=== PATIENT | male | born 1950 | race Caucasian/White ===

== ENCOUNTER 2022-06-07 08:27 | Outpatient (CLI) | payer MEDICARE, SELFPAY | END 2022-06-07 08:28 | disposition home or self-care (01) | LOC: NFLDREF 06-08 06:36 | PROVIDERS: PCP Internal Medicine; Referring Provider Internal Medicine; Visit Provider Internal Medicine | DX: Z00.00 Encounter for general adult medical examination without abnormal findings (principal); F10.11 Alcohol abuse, in remission; Z13.6 Encounter for screening for cardiovascular disorders; Z13.1 Encounter for screening for diabetes mellitus | CPT/HCPCS: 80053; 80061 ==

== ENCOUNTER 2023-06-17 15:04 | Outpatient (CLI) | payer MEDICARE, SELFPAY ==
--- OUTSIDE RECORDS SUMMARY | 2023-06-17 15:07 | XMS_ITS | Encounter Summary ---
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, left, moderate stage History of amblyopia Epiretinal membrane (ERM) of both eyes Glaucoma suspect, right Procedures Case Request OR - Ophthalmology Surgery: CATARACT EXTRACTION WITH INTRAOCULAR LENS IMPLANT Cooper Coelho MD [address] [place] [address] Referral ID Status Reason Start Date Expiration Date V isits Requested Visits Authorized [id number] Incomplete 05/16/2023 08/14/2024 1 1 * Procedure/Equipment (Routine) - Incomplete Specialty Diagnoses / Procedures Referred By Sharee cota Referred To Contact Diagnoses 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, left, moderate stage History of amblyopia Epiretinal membrane (ERM) of both eyes Glaucoma suspect, right Procedures Case Request OR - Ophthalmology Surgery: CATARACT EXTRACTION WITH INTRAOCULAR LENS IMPLANT with ab interno canaloplasty and possible goniotomy Cooper Coelho MD [address] [place] [address] Referral ID Status Reason Start Date Expiration Date V isits Requested Visits Authorized [id number] Incomplete 05/16/2023 08/14/2024 1 1 Reason for Visit * Reason Comments CONSULT CATARACTS GLAUCOMA Encounter Details Date Type Department Care Team (Late st Contact Info) Description 05/16/2023 1:00 PM CDT Office Visit [facility] Ophthalmology [address] [facility] [place] [address] Cooper Coelho MD [address] [place] [address] Combined forms of age-related cataract of both eyes (Primary Dx); Capsular glaucoma with lens pseudoexfoliation, left, moderate stage; History of amblyopia; Epiretinal membrane (ERM) of both eyes; Glaucoma suspect, right Social History Tobacco Use Types Packs/Day Years Used Date Smoking Tobacco: Never Assessed Sex and Gender Information Value Date Recorded Sex Assigned at Not on file Gender Identity Not on file Sexual Orientation Not on file documented as of this encounter Progress Notes * Cooper Coelho MD - 05/16/2023 1:00 PM CDT I reviewed the information stated in the lead pharmacy technician's note for today and agree, unless otherwise noted below. I reviewed the patient's past medical history, medications, family history, and social history. General: Generally healthy appearing. Alert and oriented x 3. Subjective: see tech note, agree. Impression: Encounter Diagnoses Name Primary? Combined forms of age-related cataract of both eyes Yes R eye: minimal concern for glaucoma L eye: IOP is 29 on cosopt, moderate cupping with suprior thinning, also with OCT thin superior andinferior mild/moderate VF defect Angles are 1-2 post dilation both L eye with 1+ TMP, R eye with trace light TMP Also with maculopathy Plan: 1. Schedule cataract extraction and IOL implantation (CEIOL) both eyes, left eye first 2. Omni canaloplasty goniotomy L eye only 3. Anesthesia: topical Refractive Goal: plano Standard vs other: standard Prior refractive surgery: no Dilation: 5-6 mm Flomax?: No Malyugin Ring?: possible Trypan?: No We reviewed the indications, risks, benefits, and alternatives of cataract surgery. Risks discussedincluded, but were not limited to: small risk of severe vision loss or blindness, small risk of 2ndoperation needed for any complication, risk of postoperative inflammation of the retina or the cornea, irregularity of the pupil, risks of positive and negatives dysphotopsias. The cataract surgery consent form will be read and signed by the patient. The different IOL options are presented to the patient using the IOL information and consent form, including Standard, Toric, and Multifocal lens options, and Distance, Near, or Monovision refractivegoals. The patient will select the best IOL option and refractive goal based on their stated visionneeds and goals. The patient understands that the desired refractive outcome is not guaranteed, and some postoperative optical correction with spectacles or contact lenses to refine vision for distance, near, or both may be necessary. With any procedure there is a small but inherent risk of acquiring infection including, but not limited to, the novel coronavirus (COVID-19). Please be aware that there is a potential for your procedure or surgery to be postponed, or possibly canceled, if you should test positive for COVID-19. There is also a potential for postponement of your procedure if there is a significant reduction in resources required to safely perform your procedure. Cooper Coelho MD documented in this encounter Plan of Treatment Upcoming Encounters Date Type Department Care Team (Latest Contact Info) Description 06/20/2023 2:30 PM CDT Appointment [address] [address] [place] [address] [place] [address] [place] [address] 06/26/2023 12:25 PM CDT Hospital Encounter [facility] [address] [facility] Ambul Surgery [address] [facility] [place] [address] Cooper Coelho MD [address] [place] [address] 06/26/2023 12:25 PM CDT - 06/26/2023 1:00 PM CDT Surgery [facility] [address] Ambul Surgery [address] [facility] [place] [address] Cooper Coelho MD [address] [place] [address] CATARACT EXTRACTION WITH INTRAOCULAR LENS IMPLANT with ab interno canaloplasty and possible goniotomy 06/27/2023 8:30 AM CDT Appointment [place] [address] [place] [address]. [place] [address] Cooper Coelho MD [address] [place] [address] 07/10/2023 9:35 AM CDT Hospital Encounter [facility] [address] Ambul Surgery [address] [facility] [place] [address] Cooper Coelho MD [address] [place] [address] 07/10/2023 9:35 AM CDT - 07/10/2023 10:10 AM CDT Surgery [facility] [address] Ambul Surgery [address] [place] [address]. [place] [address] Cooper Coelho MD [address] [place] [address] CATARACT EXTRACTION WITH INTRAOCULAR LENS IMPLANT 07/11/2023 8:50 AM CDT Appointment [place] [address] [place] [address]. 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, left, moderate stage History of amblyopia Epiretinal membrane (ERM) of both eyes Glaucoma suspect, right 06/26/2023 12:25 PM CDT PHACOEMULSIFICATION WITH IMPLANT INTRAOCULAR LENS Same Day Surgery 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, left, moderate stage History of amblyopia Epiretinal membrane (ERM) of both eyes Glaucoma suspect, right 07/10/2023 9:35 AM CDT documented as of this encounter Visit Diagnoses Diagnosis Combined forms of age-related cataract of both eyes- Primary Other and combined forms of senile cataract Capsular glaucoma with lens pseudoexfoliation, left, moderate stage History of amblyopia Personal history of other disorders of nervous system and sense organs Epiretinal membrane (ERM) of both eyes Glaucoma suspect, right Combined forms of age-related cataract of both eyes Other and combined forms of senile cataract Capsular glaucoma with lens pseudoexfoliation, left, moderate stage History of amblyopia Personal history of other disorders of nervous system and sense organs Epiretinal membrane (ERM) of both eyes Glaucoma suspect, right Combined forms of age-related cataract of both eyes Other and combined forms of senile cataract Capsular glaucoma with lens pseudoexfoliation, left, moderate stage History of amblyopia Personal history of other disorders of nervous system and sense organs Epiretinal membrane (ERM) of both eyes Glaucoma suspect, right Combined forms of age-related cataract of both eyes Other and combined forms of senile cataract Capsular glaucoma with lens pseudoexfoliation, left, moderate stage History of amblyopia Personal history of other disorders of nervous system and sense organs Epiretinal membrane (ERM) of both eyes Glaucoma suspect, right documented in this encounter Care Teams Home Economist Relationship Specialty Start Date End Date Needs Pcp, [place] [address] PCP - General 12/02/22 documented as of this encounter
--- OUTSIDE RECORDS SUMMARY | 2023-06-17 15:07 | XMS_ITS | Encounter Summary ---
Author Name Unknown Organization [facility] Address [address] [place] [address] Care Team Providers Care Pharmacy Innovation Assistant Name Role Phone Needs Pcp, Assignment Primary Care Provider [phone] Encounter Details Date Type Department Care Team (Latest Contact Info) Description 04/03/2023 Orders Only HIM DEPARTMENT Provider, [place] [address] Social History Tobacco Use Types Packs/Day Years Used Date Smoking Tobacco: Never Assessed Sex and Gender Information Value Date Recorded Sex Assigned at Not on file Gender Identity Not on file Sexual Orientation Not on file documented as of this encounter Plan of Treatment Upcoming Encounters Date Type Department Care Team (Latest Contact Info) Description 06/20/2023 2:30 PM CDT Appointment [place] [address] Family Medicine [address] [place] [address] [place] [address] [place] [address] 06/26/2023 12:25 PM CDT Hospital Encounter [facility] [address] Ambul Surgery [address] [facility] [place], [place] [address] Cooper Coelho MD [address] [place] [address] 06/26/2023 12:25 PM CDT - 06/26/2023 1:00 PM CDT Surgery [facility] [address] Ambul Surgery [address] [place] [address]. [place] [address] Cooper Coelho MD [address] [place] [address] CATARACT EXTRACTION WITH INTRAOCULAR LENS IMPLANT with ab interno canaloplasty and possible goniotomy 06/27/2023 8:30 AM CDT Appointment [place] [address] [place] [address]. [place] [address] Cooper Coelho MD [address] [place] [address] 07/10/2023 9:35 AM CDT Hospital Encounter [facility] [address] Ambul Surgery [address] [place] [address]. [place] [address] Cooper Coelho MD [address] [place] [address] 07/10/2023 9:35 AM CDT - 07/10/2023 10:10 AM CDT Surgery [place] [address] [address] Ambul Surgery [address] [place] [address] Cooper Coelho MD [address] [place] [address] CATARACT EXTRACTION WITH INTRAOCULAR LENS IMPLANT 07/11/2023 8:50 AM CDT Appointment [place] [address] [place] [address]. [place] [address] Cooper Coelho MD [address] [place] [address] 07/31/2023 10:30 AM CDT Appointment [facility] [address] [phone] Claudette Sánchez, OD [address] [place], [place] [id number] Scheduled Procedures Name Priority Associated Diagnoses Date/Ti [...] AM CDT documented as of this encounter Procedures Procedure Name Priority Date/Time Associated Diagnosis Comments EYE PENTACAM 04/03/2023 documented in this encounter Results * EYE PENTACAM (04/03/2023) Interface Provider MD DUMMY/OTHER/AR documented in this encounter Visit Diagnoses Not on filedocumented in this encounter Care Teams Pharmacy Innovation Assistant Relationship Specialty Start Date End Date Needs Pcp, [place] [address] PCP - General 12/02/22 documented as of this encounter
--- OUTSIDE RECORDS SUMMARY | 2023-06-17 15:07 | XMS_ITS | Encounter Summary ---
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 Results of the tests will be sent to Dr. Rios who will report the results to the patient. HVF and OCT available for review in FORUM. Next appt: 04/10/23 Contact message okay - yes Current Eyedrops - Combigan BID LE last night @ 10p and this morning at 8:30 am Fixation: Yelena lennon Comments: Applanation @ 11:26 RE 18 LE 26 ET INSPECTOR documented in this encounter Plan of Treatment Upcoming Encounters Date Type Department Care Team (Latest Contact Info) Description 06/20/2023 2:30 PM CDT Appointment [address] [place] [address] [place] [address] [place] [address] 06/26/2023 12:25 PM CDT Hospital Encounter [facility] [address] Ambul Surgery [address] [place] [address]. [place] [address] Cooper Coelho MD [address] [place] [address] 06/26/2023 12:25 PM CDT - 06/26/2023 1:00 PM CDT Surgery [place] [address] Ambul Surgery [address] [place] [address]. [place] [address] [place] [address] [place] [address] CATARACT EXTRACTION WITH INTRAOCULAR LENS IMPLANT with ab interno canaloplasty and possible goniotomy 06/27/2023 8:30 AM CDT Appointment [place] [address] [place] [address]. [place] [address] Cooper Coelho MD [address] [place] [address] 07/10/2023 9:35 AM CDT Hospital Encounter [facility] [address] Ambul Surgery [address] [place] [address]. [place] [address] Cooper Coelho MD [address] [place] [address] 07/10/2023 9:35 AM CDT - 07/10/2023 10:10 AM CDT Surgery [place] [address] Ambul Surgery [address] [facility] [place] [address] Cooper Coelho MD [address] [place] [address] CATARACT EXTRACTION WITH INTRAOCULAR LENS IMPLANT 07/11/2023 8:50 AM CDT Appointment [place] [address] Ophthalmology [address] [facility] [place] [address] Cooper Coelho MD [address] [place] [address] 07/31/2023 10:[address] 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
--- OUTSIDE RECORDS SUMMARY | 2023-06-17 15:07 | XMS_ITS | Encounter Summary ---
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 We need to address thisbefore we talk about cataract surgery. High eye pressure could mean that you have glaucoma, so we're going to do the visual field test to check for that tomorrow at 11am. Start the cosopt (blue top) 2 times per day in the LEFT eye. We will check your eye pressure again tomorrow and determine follow up. D DEVELOPMENT PROFESSOR documented in this encounter Progress Notes * Stacie Rios MD - 04/03/2023 1:00 PM CST [facility] Chief Complaint: CONSULT and CATARACTS Subjective: [facility] Ambrose is here for a cataract consult. Referred by Dr. Key, 01/09/23 No retinal contraindications to surgery Ambrose Camp presents for evaluation of decreased vision affecting ability to do daily activities, specifically trouble driving and reading. Context of the chief complaint/aggravating factors: He reports that he has glare around headlights when driving at night. More so in the LE for the past few years. Severity: mod Location: BE Duration: 2 years Course (getting better or worse): worse Associated symptoms: He reports that his bifocal glasses broke a few weeks ago. Right now he is using OTC readers only. 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 No History of previous refractive surgery: No Contact lens wear: No Use of flomax/tamsulosin? No Able to lie flat for 30 minutes? Yes Significant claustrophobia? No Allergic to floxin type antibiotics? No Right/Left handed: right Eye dominance: right Preferred pharmacy: [facility] in [place] on [address] Ambrose is in no acute distress. A&O x 3. Last edited by Yesy Sparks on 04/03/2023 1:39 PM. Review of Systems 10 systems reviewed, all negative except for what is documented in [facility]. General medical evaluation: Ambrose is in no acute distress. A&O x 3. Objective: Physical Exam Base Eye Exam Visual Acuity (Snellen - Linear) Right Left Dist sc 20/150 20/150 Dist ph sc NI 20/80 Near sc 20/400 J5 Tonometry (Applanation, 1:45 PM) Right Left Pressure 13 45 Tonometry #2 (Applanation, 2:10 PM) Right Left Pressure 48 Tonometry #3 (Applanation, 2.57 PM) Right Left Pressure 36 Pachymetry (04/03/2023) Right Left Thickness 556 567 Pupils Pupils Dark Light React APD Right PERRL 5 4 Brisk None Left PERRL 5 4 Brisk None Visual Dent Left Right Restrictions Partial outer superior temporal, inferior temporal, inferior nasal deficiencies Partial outer inferior temporal deficiency Extraocular Movement Right Left Full, Ortho Full, Ortho Neuro/Psych Oriented x3: Yes Mood/Affect: Normal Additional Tests Dominant Eye Right eye Additional Notes Axial OD: 23.82 OS: 24.30 Dorzolomide, Timolol LE 2:08 pm Slit Lamp and Fundus Exam External Exam Right Left External Normal Normal Slit Lamp Exam Right Left Lids/Lashes Normal Normal Conjunctiva/Sclera White and quiet White and quiet Cornea Clear Clear Anterior Chamber Deep and quiet Deep and quiet Iris Normal, no TIDs Normal, round, no TIDs, PXF material on pupillary margin Lens 1-2+ Nuclear sclerosis, trace Cortical cataract, tr Posterior subcapsular cataract 1-2+ Nuclear sclerosis through undilated pupil Refraction Manifest Refraction Sphere Cylinder [place] Dist VA Add Right -0.75 +1.50 010 20/80 +2.50 Left -3.00 +0.75 180 20/70 +2.[address] Sánchez Interpretation of testing performed today: Optic nerve ocular coherence tomography: RE: poor quality scan, will need to repeat LE: ok quality. 81 avg retinal nerve fiber layer. Normal RNFL thickness. Baseline study. OCT Macula: RE: The foveal subfield thickness is 354 microns. Normal foveal contour. Thickening without IRF/SRF. Mild ERM. LE: The foveal subfield thickness is 416 microns. Loss of foveal contour secondary to moderate ERM.Thickening without IRF/SRF. Assessment: ICD-10-CM 1. 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 Combined forms of age-related cataract of both eyes H25.813 No Charge Procedure (Today) Plan: Discussed findings and options in detail and answered questions. # Ocular hypertension, OS # Pseudoexfoliation syndrome, OS # Glaucoma suspect, OS - family history of glaucoma - no history of ocular trauma or chronic steroid use - pachy 567 - Tmax 48 (today) - Cosopt given in clinic and IOP improved to 36 after 45 minutes - start Cosopt BID - return for IOP check and visual field tomorrow - discussed the possibility of needing to add another eye drop if IOP is still elevated tomorrow - follow up pending VF results # Cataracts, both eyes - Reports gradual painless decrease in vision in affected eye. Also reports significant trouble with glare/halos when driving at night. - likely visually significant cataract affecting activities of daily living. Patient is interested and motivated for surgery. - has seen retina for eval of ERMs OS>OD -- likely plan for cataract surgery first and if still has decreased vision can consider ERM surgery - briefly discussed possible combination surgery with e commerce specialist and he is interested in this option after we get his IOP under control RTC HVF 24-2 tomorrow, follow up pending results and IOP check Stacie Rios MD [facility] Alma[address] Rodriguez I spent over 25 minutes in the clinical care of this patient, more than 50% of which was spent discussing and coordinating the diagnosis and management plan face to face with the patient. D DEVELOPMENT PROFESSOR documented in this encounter Plan of Treatment Upcoming Encounters Date Type Department Care Team (Latest Contact Info) Description 06/20/2023 2:30 PM CDT Appointment [place] [address] Family Medicine [address] [place] [address] [place] [address] [place] [address] 06/26/2023 12:25 PM CDT Hospital Encounter [facility] [address] [facility] Bld Ambul Surgery [address] [place], [place] [address] Cooper Coelho MD [address] [place] [address] 06/26/2023 12:25 PM CDT - 06/26/2023 1:00 PM CDT Surgery [place] [address] [address] Ambul Surgery [address] [place] [address]. [place] [address] Cooper Coelho MD [address] [place] [address] CATARACT EXTRACTION WITH INTRAOCULAR LENS IMPLANT with ab interno canaloplasty and possible goniotomy 06/27/2023 8:30 AM CDT Appointment [place] [address] [place] [address]. [place] [address] Cooper Coelho MD [address] [place] [address] 07/10/2023 9:35 AM CDT Hospital Encounter [place] [address] [address] Ambul Surgery [address] [place] [address]. [place] [address] Cooper Coelho MD [address] [place] [address] 07/10/2023 9:35 AM CDT - 07/10/2023 10:10 AM CDT Surgery [place] [address] Mall d Ambul Surgery [address] [place] [address]. [place] [address] Cooper Coelho MD [address] [place] [address] CATARACT EXTRACTION WITH INTRAOCULAR LENS IMPLANT 07/11/2023 8:50 AM CDT Appointment [place] [address] [place] [address]. 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 [place] [place] [address] PCP - General 12/02/22 documented as of this encounter
--- OUTSIDE RECORDS SUMMARY | 2023-06-17 15:07 | XMS_ITS | Clinical Summary ---
Author Name Unknown Organization [facility] Address [address], [place] [address] Care Team Providers Care Data Communications Engineer Name Role Phone Needs Pcp, Assignment Primary Care Provider [phone] Source Comments You are receiving this document as you are listed as the primary care provider,follow-up provider, or the patient has been referred to you for consultation.This is in compliance with the Medicare and[facility] EHR Incentive Program,which states Providers who transition their patient to another setting of careor provider of care or refers their patient to another provider of care shouldprovide summary care record for each transition of care or referral. [facility] Allergies No known active allergies Medications Medication Sig Dispensed Refills Start Date End Date Status aspirin EC 81 MG enteric coated tablet Take 1 Tablet (81 mg) by mouth daily. Active ketorolac (ACULAR) 0.5 % eye drop solution 1 drop in operative eye 4x daily starting after surgery. Then continue for 2 weeks following post op instructions 5 mL 1 05/16/2023 Active ofloxacin (OCUFLOX) 0.3 % eye drop solution 1 drop in operative eye 4x daily starting 2 days prior to surgery, then continue after surgery for 1 week following post op instructions. 5 mL 1 05/16/2023 Active prednisoLONE acetate (PRED FORTE) 1 % eye drop suspension Start after surgery: 1 drop in operative eye 4x daily for 1 wk, then 3x daily for 1 wk, then 2x daily for 1 wk, then 1x daily for 1 wk 5 mL 2 05/16/2023 Active dorzolamide-timolol (COSOPT) 2-0.5 % eye drop solution Place 1 Drop into left eye two times a day. 10 mL 3 05/26/2023 Active Active Problems Problem Noted Date Diagnosed Date Combined forms of age-related cataract of both e yes 05/16/2023 Capsular glaucoma with lens pseudoexfoliation, left, moderate stage 05/16/2023 History of amblyopia 05/16/2023 Epiretinal membrane (ERM) of both eyes Glaucoma suspect, right 05/16/2023 Encounters Date Type Department Care Team Description 05/26/2023 Telephone [facility] 39[address] Ophthalmology 39[address] [facility] [place], [place] [address] Self-Referral, Patient, Questions 05/16/2023 1:00 PM CDT Office Visit [facility] [address] Ophthalmology 39[address] [facility]. [place], [place] [id number] Cooper Coelho MD Combined forms of age-related cataract of both eyes (Primary Dx); Capsular glaucoma with lens pseudoexfoliation, left, moderate stage; History of amblyopia; Epiretinal membrane (ERM) of both eyes; Glaucoma suspect, right 04/10/2023 1:40 PM LINE INSTALLER REPAIRER Office Visit [facility] [address] [place] [address] Stacie Rios MD Pseudoexfoliation glaucoma, moderate stage (Primary Dx); Combined forms of age-related cataract of both eyes; Epiretinal membrane (ERM) of both eyes; History of amblyopia 04/04/2023 11:00 AM LINE INSTALLER REPAIRER Office Visit [facility] [address] [place] [address] Pseudoexfoliation syndrome; Glaucoma suspect of left eye 04/03/2023 1:00 PM LINE INSTALLER REPAIRER Office Visit [facility] [address] [place] [address] Stacie Rios MD Ocular hypertension of left eye (Primary Dx); Pseudoexfoliation syndrome; Glaucoma suspect of left eye; Combined forms of age-related cataract of both eyes 04/03/2023 Orders Only HIM DEPARTMENT Provider, MD Nereida 03/25/2023 Telephone [facility] 3850 Family Medicine [address] [place] [facility] [address] Needs Pcp, Assignment Clinician Finder Team from Last 3 Months Family History Medical History Relation Name Comments Blindness Maternal Grandfather Blindness Maternal Grandmother Blindness Maternal Uncle Relation Name Status Comments Maternal Grandfather Maternal Grandmother Maternal Uncle Social History Tobacco Use Types Packs/Day Years Used Date Smoking Tobacco: Never Assessed Sex and Gender Information Value Date Recorded Sex Assigned at Not on file Gender Identity Not on file Sexual Orientation Not on file Plan of Treatment Upcoming Encounters Date Type Department Care Team (Latest Contact Info) Description 06/20/2023 2:30 PM CDT Appointment [place] [address] Family Medicine [address] [place] [address] [place] [address] [place] [address] 06/26/2023 12:25 PM CDT Hospital Encounter [place] [address] Mall [address] Ambul Surgery [address] [place] [address]. [place] [address] [place] [address] [place] [address] 06/26/2023 12:25 PM CDT - 06/26/2023 1:00 PM CDT Surgery [place] [address] Mall [address] Ambul Surgery [address] [place] [address]. [place] [address] Cooper Coelho MD [address] [place] [address] CATARACT EXTRACTION WITH INTRAOCULAR LENS IMPLANT with ab interno canaloplasty and possible goniotomy 06/27/2023 8:30 AM CDT Appointment [place] [address] [place] [address]. [place] [address] Cooper Coelho MD [address] [place] [address] 07/10/2023 9:35 AM CDT Hospital Encounter [facility] [address] Ambul Surgery [address] [facility] [place] [address] Cooper Coelho MD [address] [place] [address] 07/10/2023 9:35 AM CDT - 07/10/2023 10:10 AM CDT Surgery [place] [address] [address] Ambul Surgery [address] [facility] [place] [address] Cooper Coelho MD [address] [place] [address] CATARACT EXTRACTION WITH INTRAOCULAR LENS IMPLANT 07/11/2023 8:50 AM CDT Appointment [place] [address] [place] [address]. [place] [address] Cooper Coelho MD [address] [place] [address] 07/31/2023 10:30 AM CDT Appointment [facility] [address] [address] Claudette Sánchez, OD [address] [place] [address] Scheduled Procedures Name Priority Associated Diagnoses Date/Ti [...] Glaucoma suspect, right 07/10/2023 9:35 AM CDT Health Maintenance Due Date Last Done Comments Colon Cancer Screening Plan Due 1950 Hep C Screening (Preventive Services) 1950 Cholesterol 07/22/1987 Medicare Annual Wellness Visit 03/03/2023 DTaP/Tdap/Td (2 - Tdap) 06/14/2032 06/14/2022 Pneumococcal 65+ Yrs Completed 05/07/2022 Zoster/Shingles Completed 05/07/2022, 08/24/2021 COVID-19 Vaccine Completed 02/06/2023, 08/2021, 06/25/2021, Additional history exists Influenza Completed 02/07/2023, 02/06/2022 HepA Aged Out No longer eligi ble based on patient's age to complete this topic HepB Aged Out No longer eligi ble based on patient's age to complete this topic Hib Aged Out No longer eligi ble based on patient's age to complete this topic IPV (Polio) Aged Out No longer eligi ble based on patient's age to complete this topic MCV4 Aged Out No longer eligi ble based on patient's age to complete this topic Procedures Procedure Name Priority Date/Time Associated Diagnosis Comments EYE PENTACAM 04/03/2023 from Last 3 Months Results * EYE PENTACAM (04/03/2023) Interface Provider MD LAKHANI/OTHER/AR from Last 3 Months Advance Directives * Full Code (Latest Code Status on File) Date Activated Date Inactivated Comments 05/16/2023 1:59 PM 05/16/2023 4:00 PM Care Teams Data Communications Engineer Relationship Specialty Start Date End Date Needs Pcp, [place] [address] PCP - General 12/02/22
--- OUTSIDE RECORDS SUMMARY | 2023-06-17 15:07 | XMS_ITS | Encounter Summary ---
Author Name Unknown Organization [facility] Address [address] [place] [address] Care Team Providers Care Surface Supervisor Name Role Phone Needs Pcp, Assignment Primary Care Provider [phone] Reason for Visit * Reason Comments Follow-up Encounter Details Date Type Department Care Team (Latest Contact Info) Description 04/10/2023 1:40 PM CHILD WATCH ATTENDANT Office Visit [facility] [address] [place] [address] [place] [address] [place] [address] Pseudoexfoliation glaucoma, moderate stage (Primary Dx); Combined forms of age-related cataract of both eyes; Epiretinal membrane (ERM) of both eyes; History of amblyopia Social History Tobacco Use Types Packs/Day Years Used Date Smoking Tobacco: Never Assessed Sex and Gender Information Value Date Recorded Sex Assigned at Not on file Gender Identity Not on file Sexual Orientation Not on file documented as of this encounter Progress Notes * Stacie Rios MD - 04/10/2023 1:40 PM CST [facility] Chief Complaint: Follow-up Subjective: HPI Ambrose is here for an IOP check and dilate BE Context of the chief complaint/aggravating factors: Pt states no change in vision since last exam. He has been taking the cosopt bid in the LE. Severity: mod Eye meds: * Cosopt LE BID LD: 8 am POH: ERM BE Cataracts BE PVD RE Vitreous syneresis LE Peripheral Reticular Degeneration, BE Hx of Amblyopia, RE PFSH: none Occupation (or previous occupation): retired Preferred pharmacy: [email or web address] in [place] on [address] Ambrose is in no acute distress. A&O x 3. Last edited by Cooper Porras on 04/10/2023 1:38 PM. Review of Systems 10 systems reviewed, all negative except for what is documented in HPI. General medical evaluation: Ambrose is in no acute distress. A&O x 3. Objective: Physical Exam Base Eye Exam Visual Acuity (Snellen - Linear) Right Left Dist sc 20/150 20/200 Dist ph sc 20/80 20/150 Tonometry (Applanation, 1:43 PM) Right Left Pressure 17 19 Pupils Pupils APD Right PERRL None Left PERRL None Neuro/Psych Oriented x3: Yes Mood/Affect: Normal Dilation Both eyes: 1% Tropicamide, 2.5% Phenylephrine @ 1:44 PM Slit Lamp and Fundus Exam External Exam Right Left External Normal Normal Slit Lamp Exam Right Left Lids/Lashes Normal Normal Conjunctiva/Sclera White and quiet White and quiet Cornea Clear Clear Anterior Chamber Deep and quiet Deep and quiet Iris Normal, no TIDs Normal, round, no TIDs, PXF material on pupillary margin Lens 1-2+ Nuclear sclerosis w/ vacuoles, trace Cortical cataract, tr Posterior subcapsular cataract1-2+ Nuclear sclerosis w/ vacuoles Anterior Vitreous Dense vitreous opacity, PVD Vitreous syneresis Fundus Exam Right Left Disc Normal Normal C/D Ratio Vertical 0.2 0.6 C/D Ratio Horizontal 0.2 0.6 Macula ERM, (-) heme ERM, VMT, (-) heme Vessels Normal Normal Periphery Retic degen Retic degen Interpretation of testing performed today: Optic nerve ocular coherence tomography: RE: poor quality scan LE: 79 avg retinal nerve fiber layer. Borderline RNFL thinning superiorly. Assessment: ICD-10-CM 1. 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 Combined forms of age-related cataract of both eyes H25.813 3. Epiretinal membrane (ERM) of both eyes H35.373 4. History of amblyopia Z86.69 Plan: Discussed findings and options in detail and answered questions. # Pseudoexfoliation glaucoma, OS - family history of glaucoma - no history of ocular trauma or chronic steroid use - pachy 567 - Tmax 48 - HVF 24-2 04/04/23 OD: low test reliability. Few SN and T depressions OS: few sup depressions; IN depressions. - OCT RNFL 04/10/23 OD: poor quality image OS: borderline thinning superiorly - IOP 19 today on Cosopt BID - discussed likely glaucoma with IN visual field loss and need for ongoing monitoring in the future - continue Cosopt until cataract consult with ecmo specialist # Cataracts, both eyes - Reports gradual [...] decreased vision can consider ERM surgery - discussed possible cataract and glaucoma surgery with ecmo specialist and he is interested inthis option - refer to glaucoma for cataract/MIGS consult # ERM, OS>OD - has seen retina -- recommends cataract surgery first # Amblyopia, OD - discussed how this will affect his final visual outcome after cataract surgery RTC cataract/MIGS consult next available with glaucoma Stacie Rios MD [facility] D WATCH ATTENDANT documented in this encounter Plan of Treatment Upcoming Encounters Date Type Department Care Team (Latest Contact Info) Description 06/20/2023 2:30 PM CDT Appointment [place] [id number] [place] [address] [place] [phone] [place] [address] [place] [address] 06/26/2023 12:25 PM CDT Hospital Encounter [facility] Bld Ambul Surgery [address] [facility] [place], [place] [address] Cooper Coelho MD [address] [place] [address] 06/26/2023 12:25 PM CDT - 06/26/2023 1:00 PM CDT Surgery [place] [address] [address] B[address] Ambul Surgery [address] [facility] [place] [address] Cooper Coelho MD [address] [place] [address] CATARACT EXTRACTION WITH INTRAOCULAR LENS IMPLANT with ab interno canaloplasty and possible goniotomy 06/27/2023 8:30 AM CDT Appointment [place] [address] [place] [address]. [place] [address] Cooper Coelho MD [address] [place] [address] 07/10/2023 9:35 AM CDT Hospital Encounter [facility] [address] Bld Ambul Surgery [address] [place] [address]. [place] [address] Cooper Coelho MD [address] [place] [address] 07/10/2023 9:35 AM CDT - 07/10/2023 10:10 AM CDT Surgery [place] [address] [address] Ambul Surgery [address] [place] [address]. [place] [address] Cooper Coelho MD [address] [place] [address] CATARACT EXTRACTION WITH INTRAOCULAR LENS IMPLANT 07/11/2023 8:50 AM CDT Appointment [place] [address] [place] [address]. 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
--- OUTSIDE RECORDS SUMMARY | 2023-06-17 15:07 | XMS_ITS | Encounter Summary ---
Author Name Unknown Organization [facility] Address [address] [address] Care Team Providers Care Loop Drier Operator Name Role Phone Needs Pcp, Assignment Primary Care Provider [phone] Reason for Visit * Reason Comments Questions Encounter Details Date Type Department Care Team (Late Contact Info) Description 05/26/2023 Telephone [facility] 3900 Ophthalmology 3900 [facility] [place], [place] [phone] Self-Referral, Patient, MD [place], [place] [phone] Questions Social History Tobacco Use Types Packs/Day Years Used Date Smoking Tobacco: Never Assessed Sex and Gender Information Value Date Recorded Sex Assigned at Not on file Gender Identity Not on file Sexual Orientation Not on file documented as of this encounter Nursing Notes * Jane Castañeda R - 05/26/2023 11:17 AM CDT Pt calling back. He is out of dorzolamide-timolol. * Jane Castañeda - 05/26/2023 11:12 AM CDT Pt is out of cosopt, and his pharmacy won't let him refill until sometime in June. Pt is hoping toget a new rx. documented in this encounter Plan of Treatment Upcoming Encounters Date Type Department Care Team (Latest Contact Info) Description 06/20/2023 2:30 PM CDT Appointment [place] [address] Family Medicine [address] [place] [address] [place] [address] [place] [address] 06/26/2023 12:25 PM CDT Hospital Encounter [facility] [address] Ambul Surgery [address] [place] [address] Cooper Coelho MD [address] [place] [address] 06/26/2023 12:25 PM CDT - 06/26/2023 1:00 PM CDT Surgery [place] [address] Ambul Surgery 3900 [place] [address] Cooper Coelho MD [address] [place] [address] CATARACT EXTRACTION WITH INTRAOCULAR LENS IMPLANT with ab interno canaloplasty and possible goniotomy 06/27/2023 8:30 AM CDT Appointment [place] [address] [place] [address]. [place] [address] Cooper Coelho MD [address] [place] [address] 07/10/2023 9:35 AM CDT Hospital Encounter [facility] [address] Ambul Surgery [address] [place] [address] Cooper Coelho MD [address] [place] [address] 07/10/2023 9:35 AM CDT - 07/10/2023 10:10 AM CDT Surgery [facility] [address] Ambul Surgery [address] [place] [address] Cooper oCelho MD [address] [place] [address] CATARACT EXTRACTION WITH INTRAOCULAR LENS IMPLANT 07/11/2023 8:50 AM CDT Appointment [place] [address] Ophthalmology 39[address] [place] [address] Cooper Coelho MD [address] [place] [address] 07/31/2023 10:30 AM CDT Appointment [facility] [address] [phone] Claudette Sánchez, OD [address] [place] [address] Scheduled Procedures Name Priority Associated Diagnoses Date/Ti [...] documented as of this encounter Visit Diagnoses Not on filedocumented in this encounter Care Teams Loop Drier Operator Relationship Specialty Start Date End Date Needs Pcp, [place] [address] PCP - General 12/02/22 documented as of this encounter
--- OUTSIDE RECORDS SUMMARY | 2023-06-17 15:08 | XMS_ITS | Encounter Summary ---
Author Name Unknown Organization [facility] Address [address] [place] [address] Care Team Providers Care Paratransit Driver Name Role Phone Needs Pcp, Assignment Primary Care Provider [phone] Reason for Visit * Reason Comments Clinician Finder Team Encounter Details Date Type Department Care Team (Late st Contact Info) Description 03/25/2023 Telephone [facility] 3850 Family Medicine 3850 [facility] [place], [place] [phone] Needs Pcp, Assignment [place], [place] [phone] Clinician Finder Team Social History Tobacco Use Types Packs/Day Years Used Date Smoking Tobacco: Never Assessed Sex and Gender Information Value Date Recorded Sex Assigned at Not on file Gender Identity Not on file Sexual Orientation Not on file documented as of this encounter Plan of Treatment Upcoming Encounters Date Type Department Care Team (Latest Contact Info) Description 06/20/2023 2:30 PM CDT Appointment [facility] [address] Family Medicine [address] [place] [phone] [place] [address] [place] [address] 06/26/2023 12:25 PM CDT Hospital Encounter [facility] 39[address] [facility] [address]ld Ambul Surgery 3900 [facility] [place], [place] [address] Cooper Coelho MD [address] [place], [place] [address] 06/26/2023 12:25 PM CDT - 06/26/2023 1:00 PM CDT Surgery [facility] [address] Ambul Surgery 3900 [facility] [place] [address] Cooper Coelho MD [address] [place] [address] CATARACT EXTRACTION WITH INTRAOCULAR LENS IMPLANT with ab interno canaloplasty and possible goniotomy 06/27/2023 8:30 AM CDT Appointment [place] [address] [place] [address]. [place] [address] Cooper Coelho MD [address] [place] [address] 07/10/2023 9:35 AM CDT Hospital Encounter [facility] [address] Ambul Surgery [address] [facility] [place] [address] Cooper Coelho MD [address] [place] [address] 07/10/2023 9:35 AM CDT - 07/10/2023 10:10 AM CDT Surgery [place] [address] Ambul Surgery [address] [facility] [place] [address] Cooper Coelho MD [address] [place] [address] CATARACT EXTRACTION WITH INTRAOCULAR LENS IMPLANT 07/11/2023 8:50 AM CDT Appointment [place] [address] [place] [address]. [place] [address] Cooper Coelho MD [address] [place] [address] 07/31/2023 10:30 AM CDT Appointment [facility] [address] [place] [phone] Claudette Sánchez, OD [address] [place] [address] Scheduled Procedures Name Priority Associated Diagnoses Date/Ti [...] on filedocumented in this encounter Care Teams Paratransit Driver Relationship Specialty Start Date End Date Needs Pcp, [place] [address] PCP - General 12/02/22 documented as of this encounter
== END 2023-06-17 15:05 | disposition home or self-care (01) ==
LOC: NFLDREF 15:05
PROVIDERS: PCP Internal Medicine; Visit Provider Internal Medicine
DX: Z12.5 Encounter for screening for malignant neoplasm of prostate (principal)
CPT/HCPCS: G0103

== ENCOUNTER 2023-08-21 12:39 | Outpatient (CLI) | payer MEDICARE, SELFPAY ==
--- OUTSIDE RECORDS SUMMARY | 2023-08-21 12:43 | XMS_ITS | Clinical Summary ---
[facility] Address [address] [place] [address] Care Team Providers Care Promotions Representative Name Role Phone Needs Pcp, Assignment Primary Care Provider [phone] Source Comments You are receiving this document as you are listed as the primary care provider,follow-up provider, or the patient has been referred to you for consultation.This is in compliance with the Medicare and[facility] EHR Incentive Program,which states Providers who transition their patient to another setting of careor provider of care or refers their patient to another provider of care shouldprovide summary care record for each transition of care or referral. [employer] [facility] Facility[facility] Allergies No known active allergies Medications Medication Sig Dispensed Refills Start Date End Date Status aspirin EC 81 MG enteric coated tablet Take 1 Tablet (81 mg) by mouth daily. Active ofloxacin (OCUFLOX) 0.3 % eye drop solution 1 drop in operative eye 4x daily starting 2 days prior to surgery, then continue after surgery for 1 week following post op instructions. 5 mL 1 4 Active Additional Information Patient not taking.Reported on 08/04/2023 latanoprost (XALATAN) 0.005 % eye drop solution Place 1 Drop into left eye daily at bedtime. 2.5 mL 12 4 Active acetaZOLAMIDE (DIAMOX SEQUALS) 500 MG capsule Take 1 Capsule (500 mg) by mouth two times a day. 180 Capsule 3 4 07/04/19 25 Active Loteprednol Etabonate (LOTEMAX SM) 0.38 % GEL Start after surgery: 1 drop in operative eye 3x daily for 1 week, then 2x daily for 1 week, then 1x daily for 1 week 5 g 1 4 Active Additional Information Patient not taking.Reported on 08/04/2023 sodium chloride (NASIR-128) 2 % eye drop solution Place 1 Drop into left eye 4 times a day. 15 mL 4 4 Active ketorolac (ACULAR) 0.5 % eye drop solution Place 1 Drop into left eye 4 times a day. 5 mL 1 4 Active prednisoLONE acetate (PRED FORTE) 1 % eye drop suspension Place 1 Drop into left eye 4 times a day. 10 mL 1 4 Active dorzolamide-celestine olol (COSOPT) 2-0.5 % eye drop solution Place 1 Drop into both eyes two times a day. 30 mL 4 4 Active ketorolac (ACULAR) 0.5 % eye drop solution 1 drop in operative eye 4x daily starting after surgery. Then continue for 2 weeks following post op instructions 5 mL 1 4 08/04/19 24 Discontinued prednisoLONE acetate (PRED FORTE) 1 % eye drop suspension Start after surgery: 1 drop in operative eye 4x daily for 1 wk, then 3x daily for 1 wk, then 2x daily for 1 wk, then 1x daily for 1 wk 5 mL 2 4 08/04/19 24 Discontinued dorzolamide-celestine olol (COSOPT) 2-0.5 % eye drop solution Place 1 Drop into left eye two times a day. 10 mL 3 4 08/19/19 24 Discontinued(*Me d change OR same med OR reorder, new dose/directions) prednisoLONE acetate (PRED FORTE) 1 % eye drop suspension Place 1 Drop into left eye 4 times a day. 10 mL 1 4 08/04/19 24 Discontinued(*Me d change OR same med OR reorder, new dose/directions) ketorolac (ACULAR) 0.5 % eye drop solution Place 1 Drop into left eye 4 times a day. 5 mL 1 4 08/04/19 24 Discontinued(*Me d change OR same med OR reorder, new dose/directions) dorzolamide-celestine olol (COSOPT) 2-0.5 % eye drop solution Place 1 Drop into both eyes two times a day. 30 mL 4 4 08/19/19 24 Discontinued(*Me d change OR same med OR reorder, new dose/directions) Active Problems Problem Noted Date Diagnosed Date Combined forms of age-related cataract of both e yes 05/16/2023 Capsular glaucoma with lens pseudoexfoliation, left, moderate stage 05/16/2023 History of amblyopia 05/16/2023 Epiretinal membrane (ERM) of both eyes 4 Glaucoma suspect, right 05/16/2023 Encounters Date Type Department Care Team Description 08/19/2023 11:00 AM CDT Office Visit [place] [address] Retina [address] 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 [place] [address] Cooper Coelho MD Pseudophakia (Primary Dx); History of amblyopia; Vitreomacular traction syndrome of both eyes; CME (cystoid macular edema), left 07/30/2023 Telephone [place] [address] [place] [address]. [place] [address] Self-Referral, MD Shila Questions 07/11/2023 10:30 AM CDT Lab Visit [address] [phone] Pseudophakia; Iridodialysis, left; History of amblyopia; Combined forms of age-related cataract of both eyes 07/11/2023 8:50 AM CDT Office Visit [place] [address] [place] [address]. [place] [address] Cooper Coelho MD Pseudophakia (Primary Dx); Iridodialysis, left; History of amblyopia; Combined forms of age-related cataract of both eyes 07/04/2023 2:10 PM CDT Office Visit [place] [address] [place] [address]. [place] [address] Cooper Coelho MD Pseudophakia (Primary Dx) 07/04/2023 Telephone [place] [address] [place] [address]. [place] [address] Cooper Coelho MD 06/27/2023 8:30 AM CDT Office Visit [place] [address] [place] [address]. [place] [address] Cooper Coelho MD History of amblyopia (Primary Dx); Combined forms of age-related cataract of both eyes; Iridodialysis, left 06/27/[address] [place] [address] Cooper Coelho MD Appt. Needed 06/26/2023 9:10 AM CDT - 06/26/2023 9:45 AM CDT Surgery [address] [place] [address]. [place] [address] Cooper Coelho MD COMPLEX CATARACT EXTRACTION WITH INTRAOCULAR LENS IMPLANT with ab interno canaloplasty , goniotomy 06/26/2023 8:34 AM CDT Anesthesia Event [address] Amb[address] [place] [address]. [place] [address] Chavez Noriega MD Wolpers, Wendy A, APRN, SENIOR APPLICATIONS ARCHITECT 06/26/2023 8:04 AM CDT - 06/26/2023 9:56 AM CDT Hospital Encounter [facility] [address] Ambul Surgery [address] [place] [address] Cooper Coelho MD Discharge Disposition: Home 06/20/2023 2:30 PM CDT Pre-Op Visit [place] [address] Family Medicine [address] [place] [phone] Ambrose Roth MD Preop examination (Primary Dx); Screening for cholesterol level; Screening for colon cancer 05/26/2023 Telephone [facility] 39[address] Ophthalmology [address] [place] [address] Self-Referral, Patient, MD Questions from Last 3 Months Immunizations Name Administration Dates Next Due Influenza IIV4 (Quadrivalent ) Fluzone, 65+ Yrs 02/07/2023,02/06/2022 Moderna 12+ 02/06/2023 PCV20 ([id number]) 05/07/2022 Pfizer Bivalent 12+ 02/06/2022 Pfizer Monovalent 12+ 06/25/2021 Pfizer Monovalent 12+ Purple Top 02/13/2021,0511/2020,06/28/2020 Tdap 06/14/2022 Zoster RZV (Shingrix) 05/07/2022,08/24/2021 Family History Medical History Relation Name Comments Blindness Maternal Grandfather Blindness Maternal Grandmother Blindness Maternal Uncle Relation Name Status Comments Maternal Grandfather Maternal Grandmother Maternal Uncle Social History Tobacco Use Types Packs/Day Years Used Date Smoking Tobacco: Every Day Cigarettes Smokeless Tobacco: Never Tobacco Cessation:Ready to Q uit: Not Asked; Counseling Given: Not Answered Alcohol Use Standard Drinks/Week Comments Not Currently 0 (1 standard drink = 0.6 oz pur e alcohol) PHQ-2 Answer Date Recorded PHQ-2 Score 0 06/20/2023 Sex and Gender Information Value Date Recorded Sex Assigned at Not on file Gender Identity Not on file Sexual Orientation Not on file Last Filed Vital Signs Vital Sign Reading Time Taken Comments Blood Pressure 120/88 06/26/2023 9:50 AM CDT Pulse 58 06/26/2023 9:50 AM CDT Temperature 36.2 ??C (97.2 ??F) 06/26/2023 9:24 AM CD T Respiratory Rate 19 06/26/2023 9:50 AM CDT Oxygen Saturation 98% 06/26/2023 9:50 AM CDT Inhaled Oxygen Concentration - - Weight 73.5 kg (162 lb 1.6 oz) 06/20/2023 2:27 P M CDT Height 177.8 cm (5' 10) 06/20/2023 2:27 PM CDT Body Mass Index 23.26 06/20/2023 2:27 PM CDT Plan of Treatment Upcoming Encounters Date Type Department Care Team (Late st Contact Info) Description 09/03/2023 9:50 AM CDT Appointment [place] [address] [place] [address]. [place], [place] [address] Cooper Coelho MD [address] [place], [place] [phone] 09/23/2023 10:00 AM CDT Appointment [facility] 39[address] Retina [address]00 [facility]. 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, left, moderate stage History of amblyopia Epiretinal membrane (ERM) of both eyes Glaucoma suspect, right Health Maintenance Due Date Last Done Comments Hep C Screening (Preventive Services) 1950 Cholesterol 07/22/1987 Abdominal Aortic Aneurysm (AAA) Screening 2017 COVID-19 Vaccine ( season) 2023 02/06/2023, 02/06/2022, 06/25/2021, Additional history exists Cologuard (Stool DNA) 06/01/2024 06/01/2021 (Complet ed) Medicare Annual Wellness Visit 06/18/2024 06/19/2023 (Completed) DTaP/Tdap/Td (2 - Tdap) 06/14/2032 06/14/2022 Pneumococcal 65+ Yrs Completed 05/07/2022 Zoster/Shingles Completed 05/07/2022, 08/24/2021 Influenza Completed 02/07/2023, 02/06/2022 HepA Aged Out [...] on patient's age to complete this topic Medical Devices Implanted Type Area Automotive Machinist Device Identifier Shelf Expiration Date Model / Serial / Lot Lens Intraocular Dib00 19.5 - [employer] - [id number] Implanted:Qty: 1 on 06/26/2023 by Cooper Coelho MD at [facility] DEV[facility] Left: EYE [employer] 01/18/2026 [id number] / [id number] / Procedures Procedure Name Priority Date/Time Associated Diagnosis Comments BASIC METABOLIC PANEL Routine 08/04/2023 10:34 AM CDT Pseudophakia BASIC METABOLIC PANEL Routine 07/11/2023 10:12 AM CDT Pseudophakia Iridodialysis, left History of amblyopia Combined forms of age-related cataract of both eyes PHACOEMULSIFICATION WITH IMPLANT INTRAOCULAR LENS Same Day Surgery 06/26/2023 8:31 AM CDT 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 glaucoma with lens pseudoexfoliatio n, left, moderate stage History of amblyopia Epiretinal membrane (ERM) of both eyes Glaucoma suspect, right from Last 3 Months Results * (ABNORMAL) Basic Metabolic Panel (08/04/2023 10:34 AM CDT) Only the most recent of2 resultswithin the time period is included. [facility] Sodium 139 136 - 145 mmol/L 08/04/2023 6:03 PM CDT [facility] Potassium 5.1 3.5 - 5.1 mmol/L 08/04/2023 6:03 PM [facility] Chloride 112(H) 98 - 109 mmol/L 08/04/2023 6:03 PM [facility] CO2 20 20 - 29 mmol/L 08/04/2023 6:03 PM [facility] Anion Gap 7 6 - 16 mmol/L 08/04/2023 6:03 PM [facility] Calcium 9.6 8.4 - 10.4 mg/dL 08/04/2023 6:03 PM [facility] BUN 16 7 - 26 mg/dL 08/04/2023 6:03 PM [facility] Creatinine 1.17 0.73 - 1.18 mg/dL 08/04/2023 6:03 PM [facility] Glucose 107(H) 70 - 100 mg/dL 08/04/2023 6:03 PM [facility] Comment:The given reference range is for the fasting state. Non-fasting reference range for glucose is 70 - 180 mg/dL. GFR, Estimated >60 >60 mL/min/1.7 3m2 08/04/2023 6:03 PM [facility] Hours Fasting 0.0 8 - 12 Hours 08/04/2023 6:03 PM [facility] Blood Venipuncture / Unknown 08/04/2023 10:34 AM CDT 08/04/2023 10:34 AM T Cooper Coelho MD LAB_1 [facility] [address] [place] [address], [facility] from Last 3 Months Advance Directives * Full Code (Latest Code Status on File) Date Activated Date Inactivated Comments 05/16/2023 1:59 PM 05/16/2023 4:00 PM Care Teams Promotions Representative Relationship Specialty Start Date End Date Needs Jaylyn, [place] [address] PCP - General 12/02/22
--- OUTSIDE RECORDS SUMMARY | 2023-08-21 12:43 | XMS_ITS | Encounter Summary ---
Author Organization [facility] Address [address] [place] [address] Care Team Providers Care Dredge Pump Operator Name Role Phone Needs Pcp, Assignment Primary Care Provider [phone] Encounter Details Date Type Department Care Team (Late Contact Info) Description 07/04/2023 Telephone [facility] 3900 Ophthalmology 3900 [facility] [place], [place] [phone] Cooper Coelho MD [address] [place], [place] [phone] Social History Tobacco Use Types Packs/Day Years Used Date Smoking Tobacco: Every Day Cigarettes Smokeless Tobacco: Never Alcohol Use Standard Drinks/Week Comments Not Currently [...] Encounters Date Type Department Care Team (Late Contact Info) Description 09/03/2023 9:50 AM CDT Appointment [facility] 3900 Ophthalmology [address] [place], [place] [address] Cooper Coelho MD [address] [place] [address] 09/23/2023 10:00 AM CDT Appointment [facility] 39[address] Retina [address] 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
--- OUTSIDE RECORDS SUMMARY | 2023-08-21 12:43 | XMS_ITS | Encounter Summary ---
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 [address] Cooper Coelho MD [address] [place] [address] COMPLEX CATARACT EXTRACTION WITH INTRAOCULAR LENS IMPLANT with ab interno canaloplasty , goniotomy Social History Tobacco Use Types Packs/Day Years [...] on file documented as of this encounter Last Filed Vital Signs Vital Sign Reading Time Taken Comments Blood Pressure 113/80 06/26/2023 9:40 AM CDT Pulse 65 06/26/2023 9:40 AM CDT Temperature 36.2 ??C (97.2 ??F) 06/26/2023 9:24 AM CD T Respiratory Rate 18 06/26/2023 9:40 AM CDT Oxygen Saturation 98% 06/26/2023 9:40 AM CDT Inhaled Oxygen Concentration - - Weight - - Height - - Body Mass Index - - documented in this encounter Medications at Time of Discharge Medication Sig Dispensed Refills Start Date End Date aspirin EC 81 MG enteric coated tablet Take 1 Tablet (81 mg) by mouth daily. ofloxacin (OCUFLOX) 0.3 % eye drop solution 1 drop in operative eye 4x daily starting 2 days prior to surgery, then continue after surgery for 1 week following post op instructions. 5 mL 1 05/16/2023 dorzolamide-timolol (COSOPT) 2-0.5 % eye drop solution Place 1 Drop into left eye two times a day. 10 mL 3 05/26/2023 08/19/2023 ketorolac (ACULAR) 0.5 % eye drop solution 1 drop in operative eye 4x daily starting after surgery. Then continue for 2 weeks following post op instructions 5 mL 1 05/16/2023 08/04/2023 prednisoLONE acetate (PRED FORTE) 1 % eye drop suspension Start after surgery: 1 drop in operative eye 4x daily for 1 wk, then 3x daily for 1 wk, then 2x daily for 1 wk, then 1x daily for 1 wk 5 mL 2 05/16/2023 08/04/2023 documented as of this encounter H&P Notes * Cooper Coelho MD - 06/26/2023 9:56 AM CDT Surgery Update for Preop History and Physical For 06/26/2023 scheduled procedure Update to H&P includes: Patient and/or family denies any health changes since the H&P This patient has been evaluated by me today and has been found to be a suitable candidate for surgery. 06/26/2023 Source Note - Ambrose Roth MD - 06/20/2023 2:30 PM CDT Pre-Operative Assessment 06/20/2023 ET Amb PreOp Assessment Details Procedure CATARACT EXTRACTION WITH INTRAOCULAR LENS IMPLANT with ab interno canaloplasty and possible goniotomy Surgeon Dr. Meliton [facility] Procedure Date 06/26/2023 Second Procedure Date 07/10/2023 Roman Boggs is a 72 y.o. old male here for pre-operative evaluation for procedure noted above. Patient Active Problem List Diagnosis Date Noted Combined forms of age-related cataract of both eyes 05/16/2023 Capsular glaucoma with lens pseudoexfoliation, left, moderate stage 05/16/2023 History of amblyopia 05/16/2023 Epiretinal membrane (ERM) of both eyes 05/16/2023 Glaucoma suspect, right 05/16/2023 History reviewed. No pertinent past medical history. History reviewed. No pertinent surgical history. Current Outpatient Medications Medication Instructions aspirin EC 81 mg, Oral, DAILY dorzolamide-timolol (COSOPT) 2-0.5 % eye drop solution 1 Drop, Left Eye, BID ketorolac (ACULAR) 0.5 % eye drop solution 1 drop in operative eye 4x daily starting after surgery.Then continue for 2 weeks following post op instructions ofloxacin (OCUFLOX) 0.3 % eye drop solution 1 drop in operative eye 4x daily starting 2 days prior to surgery, then continue after surgery for 1 week following post op instructions. prednisoLONE acetate (PRED FORTE) 1 % eye drop suspension Start after surgery: 1 drop in operative eye 4x daily for 1 wk, then 3x daily for 1 wk, then 2x daily for 1 wk, then 1x daily for 1 wk No Known Allergies Social History Occupational History Not on file Tobacco Use Smoking status: Every Day Types: Cigarettes Smokeless tobacco: Never Vaping Use Vaping status: Never Used Substance and Sexual Activity Alcohol use: Not Currently Drug use: Never Sexual activity: Not on file No LMP for male patient. Family History Problem Relation Age of Onset Blindness Maternal Uncle Blindness Maternal Grandmother Blindness Maternal Grandfather Review of Systems: 06/20/2023 ET Amb PreOp Assessment Sx Have you had a heart attack in the last 30 days? No Have you experienced chest tightening or chest pressure with activity? No Do you wake at night with difficulty breathing? No Do you have swelling in your feet or ankles? No Do you get short of breath if lying flat at night? No Do you hear wheezing or whistling when you breathe? No Have you had a cough, runny nose, or cold symptoms in the last 2 weeks? No Have you tested positive for Covid in the last 6 months? No Do you have a long-standing cough? No Do you snore or are you sleepy during the day? No Do you have any symptoms due to a recent concussion? No Do you or close relatives have bleeding or clotting problems? No Have you taken Aspirin, Ibuprofen (Advil) or Naproxen (Aleve) in the last 7 days? Yes Do you or close relatives have a history of a severe or life-threatening reaction to anesthesia? No Estimated Functional Capacity: Can you climb one flight of stairs, or walk up a gradual uphill without stopping? yes, functional capacity is more than or equal to 4 METS Objective BP 138/85 (BP Location: Left Arm, BP Cuff Size: Regular - Long) Pulse 66 Temp 97.2 ??F (36.2 ??C) (Tympanic) Resp 18 Ht 5' 10 (1.778 m) Wt 162 lb 1.6 oz (73.5 kg) SpO2 98% BMI 23.26 kg/m?? Physical Exam: General Appearance: alert, well appearing, and in no apparent distress Eyes: lids normal, sclera clear, and conjunctiva normal ENT: oropharynx clear Neck: no lymphadenopathy and no thyromegaly or nodules Heart: regular rate and rhythm and no murmurs, gallops or rubs Lungs: clear to auscultation and no wheezes, rales or rhonchi Abdomen: soft, nondistended, nontender, no palpable masses, and no organomegaly Extremities: no edema Skin: no rashes or worrisome lesions Neurologic: normal speech and no facial droop Assessment/Plan Patient is medically optimized for planned procedure(s). ICD-10-CM 1. Preop examination Z01.818 2. Screening for cholesterol level Z13.220 3. Screening for colon cancer Z12.11 Special risks: None Medication recommendations: Hold ASA 7 days prior to surgery. Electronically signed by: Ambrose Roth MD 06/20/2023, 2:49 PM documented in this encounter Procedure Notes * Cooper Coelho MD - 06/26/2023 9:56 AM CDT OPERATIVE REPORT DATE OF OPERATION: 06/26/2023 : 1950 PREOPERATIVE DIAGNOSIS: Visually significant nuclear sclerotic age-related cataract, left eye. Primary open angle glaucoma, moderatestage Disorder of pupillary function POSTOPERATIVE DIAGNOSIS: Same Zonulopathy INDICATIONS FOR PROCEDURE: The patient has a visually significant cataract of the left eye causing problems with reading and distance vision, as well as glare. After discussing the R/B/A's of cataract surgery, the patient voiced understanding and elected to proceed. PROCEDURE: 1. COMPLEX Phacoemulsification and extraction of lens, left eye 2. Intraocular lens implantation, left eye 3. Canaloplasty using OMNI?? Surgical System (CPT 81792-ka not bill [place] addition to 19437) 4. Goniotomy using Omni Surgical System (Bill CPT code 13020 as primary procedure) LENS IMPLANT: J+J diB00 19.5 diopter lens SURGEON: Cooper oCelho MD AIR [employer]TE TRAFFIC CONTROLLER: None. ANESTHESIA: Topical and intraocular nonpreserved lidocaine. EBL: Less than 1 ml. COMPLICATIONS: Small iridodialysis at [facility]. DESCRIPTION OF PROCEDURE: The patient was identified in the preoperative area where the operative eye was marked. The patientwas brought to the operating room where a time-out was called. The left ocular structures were prepped and draped in the usual sterile ophthalmic fashion. A lid speculum was inserted. A paracentesis was made, and 1% nonpreserved lidocaine was injected into the anterior chamber. Viscoelastic was then placed into the anterior chamber. The anterior chamber was entered through a clear corneal incision made by a 2.5-mm metal keratome blade. I noted a wrinkled capsule, indicative of loose zonules. The anterior capsulorrhexis was done. The nucleus was hydrodissected, and then removed by phaco [id number] technique. The residual cortex and epinucleus were removed using automated irrigation/aspiration. Viscoelastic was placed into the capsular bag. The rhexis was well centered, without any peripheral zonular dialysis despite obvious global zonule weakness noted during the case. The IOL was then injected into the capsular bag. The OMNI?? Surgical System was introduced through the keratome incision across the anterior chambertowards the nasal iridocorneal angle. The gonioprism was placed on the eye to visualize the nasal anterior chamber angle. The cannula tip was used to gain access into Schlemm's canal. The microcatheter was gently advanced into and around the canal 90degrees. Upon retraction of the microcatheter, a controlled amount of viscoelastic fluid was delivered into Schlemm???s Canal. The OMNI?? Surgical System was reintroduced into the canal 180 degrees (opposite angle). I performed a 180 degree canaloplasty. The microcatheter reintroduced and was used to unroof Schlemm???s canalby slowly withdrawing the extended microcatheter from the eye, creating a 90 degree goniotomy. Noteduring the reintroduction of the microcatheter, it caught the tip of the peripherla iris, and created small/modest peripheral iridodialysis at the CCI. The cannula was withdrawn from the anterior chamber and removed from the eye. The residual viscoelastic was then removed using the automated irrigation/aspiration. The anterior chamber was reformed with BSS, and the wounds were hydrated, checked for water tightness and found to be secure. I did place a 10-0 nylon at the CCI to prevent iris prolapse. The speculum and drapes were removed, and vigamox and prednisolone drops were placed in the operative eye. An eye shield was placed over the operative eye. The patient tolerated the procedure well and went from the operating room to the recovery room in excellent condition. Because of poor pupillary dilation preventing an adequate view, I inserted a 6.25 mm malyugin ring to expand the pupil. This was done prior to capsulorhexis. After IOL insertion, I removed the ring using the ring breaker oiler. documented in this encounter Plan of Treatment Upcoming Encounters Date Type Department Care Team (Late st Contact Info) Description 09/03/2023 9:50 AM CDT Appointment [place] [address] [address] [place] [address]. [place] [address] Cooper Coelho MD [address] [place] [address] 09/23/2023 10:00 AM CDT Appointment [facility] [address] [facility] 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, left, moderate stage History of amblyopia Epiretinal membrane (ERM) of both eyes Glaucoma suspect, right documented as of this encounter Procedures Procedure Name Priority Date/Time Associated Diagnosis Comments PHACOEMULSIFICATION WITH IMPLANT INTRAOCULAR LENS Same Day Surgery 06/26/2023 8:31 AM CDT 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 , left, moderate stage History of amblyopia Epiretinal membrane (ERM) of both eyes Glaucoma suspect, right documented in this encounter Visit Diagnoses Diagnosis Combined forms of age-related cataract of both eyes Other and combined forms of senile cataract Capsular glaucoma with lens pseudoexfoliation, left, moderate stage History of amblyopia Personal history of other disorders of nervous system and sense organs Epiretinal membrane (ERM) of both eyes Glaucoma suspect, right * Plan of Care - Nancy Sky RN - 06/23/2023 10:50 AM CDT PPA call completed by calling [phone] and spoke to patient. Advised of arrival time 8:05 AM. Reviewed pre-procedure questions, detailed instructions, with NPO guidelines, class a regional drivers requirements and address given. All questions answered, no other needs at this time. Call back number [phone] for any questions/concerns. Nancy Sky RN 10:50 AM 06/23/2023 documented in this encounter Admitting Diagnoses Diagnosis Combined forms of age-related cataract of both eyes Other and combined forms of senile cataract Capsular glaucoma with lens pseudoexfoliation, left, moderate stage History of amblyopia Personal history of other disorders of nervous system and sense organs Epiretinal membrane (ERM) of both eyes Glaucoma suspect, right documented in this encounter Administered Medications Inactive Administered Medications - up to 3 most recent administrations Medication Order MAR Action Action Date Dose Rate Site acetaminophen (TYLENOL) tablet 650 mg 650 mg, Oral, ONCE PRN, Other, Mild Pain (pain score 1-4), Starting on Josephine 06/26/23 at 0928, Until Josephine 06/26/23 at 1157, For 1 dose, Give for mild pain or if patient prefers acetaminophen over other options for pain (all pain scores)., Post-op acetaZOLAMIDE (DIAMOX SEQUALS) sustained release capsule 500 mg 500 mg, Oral, PRIOR TO DISCHARGE, On Josephine 06/26/23 at 0945, For 1 dose, Do not crush or chew cap. Do not give if the patient has a sulfa allergy., Post-op Given 06/26/2023 9:37 AM CDT 500 mg balance salt (BSS) ophthalmic solution ONCE PRN, Starting on Josephine 06/26/23 at 0845, Until Josephine 06/26/23 at 1157, Intra-op Given 06/26/2023 8:45 AM CDT 15 mL Left Eye carbachol (MIOSTAT) 0.01 % intraocular solution ONCE PRN, Starting on Josephine 06/26/23 at 0859, Until Josephine 06/26/23 at 1157, Intra-op Given 06/26/2023 8:59 AM CDT 0.5 mL Left Eye EPINEPHrine PF 0.5 mg in balance salt (BSS) 500 mL ONCE PRN, Starting on Josephine 06/26/23 at 0845, Intra-op Given 06/26/2023 8:45 AM CDT 200 mL Left Eye fentaNYL (SUBLIMAZE) injection 25-50 mcg 25-50 mcg, Intravenous, [id number], Pain, The immediate postop period when faster on-set, short acting agent is desired., Starting on Josephine 06/26/23 at 0815, Until Josephine 06/26/23 at 1157, Administer every 5 minutes as needed, to a maximum cumulative dose of 250 mcg. Call Anesthesiologist if additional or greater doses needed For patients with a regional, spinal, or local anesthetic, may give for anticipated pain as the anesthetic wears off. Use fentanyl initially for a short acting agent for treatment of acute post-operative pain.?May be used in conjunction with alonger acting agent if ordered for optimal pain control.?Respiratory rate must be greater than 10 to administer medications., PACU/Recovery fentaNYL (SUBLIMAZE) injection 25-50 mcg 25-50 mcg, Intravenous, [id number], Pain, Procedure, Starting on Josephine 06/26/23 at 0928, Until Josephine 06/26/23 at 1157, For 2 doses, As directed by anesthesiologist, Pre-op HYDROmorphone (DILAUDID) injection 0.2-0.4 mg 0.2-0.4 mg, Intravenous, Q10MIN PRN, Pain, The immediate postop period when longer acting agent is desired., Starting on Josephine 06/26/23 at 0815, Until Josephine 06/26/23 at 1157, Maximum cumulative dose is 2 mg in PACU, call Anesthesiologist if additional or greater dosing is needed. For patients with a regional, spinal, or local anesthetic, may give for anticipated pain as the anesthetic wears off. , PACU/Recovery lidocaine PF (XYLOCAINE) 1 % injection 0.1-0.3 mL 0.1-0.3 mL, Subcutaneous, PRN, Other, for IV insertion, Starting on Josephine 06/26/23 at 0810, For 1 day, Lidocaine to be used for IV starts unless patient refuses., Pre-op lidocaine PF (XYLOCAINE) 1 % injection ONCE PRN, Starting on Josephine 06/26/23 at 0845, Intra-op Given 06/26/2023 8:45 AM CDT 1 mL Left Eye meperidine (DEMEROL) injection 12.5 mg 12.5 mg, Intravenous, [id number], Shivering, Starting on Josephine 06/26/23 at 0815, Until Josephine 06/26/23 at 1157, For 2 doses, Maximum cumulative dose is 25 mg. Do not give to patients receiving MAO inhibitors (e.g. phenelzine (NARDIL), tranylcypromine (PARNATE), selegiline (ELDEPRYL))., PACU/Recovery midazolam (VERSED) injection 1-2 mg 1-2 mg, Intravenous, [id number], Sedation, Anxiety, Procedure, Starting on Josephine 06/26/23 at 0928, Until Josephine 06/26/23 at 1157, As directed by anesthesiologist MAX Dose 2mg, Pre-op moxifloxacin (VIGAMOX) 0.5 % ophthalmic solution 1 Drop 1 Drop, See Admin Instructions, OTHER, Starting on Josephine 06/26/23 at 0810, Until Josephine 06/26/23 at 0826, For 3 doses, Following tetracaine eye drop, instill 1 drop into operative eye every 5-10 minutes x 3, Pre-op Given 06/26/2023 8:26 AM CDT 1 Drop Left Eye Given 06/26/2023 8:21 AM CDT 1 Drop Le ft Eye Given 06/26/2023 8:16 AM CDT 1 Drop Le ft Eye moxifloxacin (VIGAMOX) 0.5 % ophthalmic solution ONCE PRN, Starting on Josephine 06/26/23 at 0845, Until Josephine 06/26/23 at 1157, Intra-op Given 06/26/2023 8:45 AM CDT 1 Drop Left Eye moxifloxacin-BSS 1 MG/ML intracameral injection ONCE PRN, Starting on Josephine 06/26/23 at 0845, Until Josephine 06/26/23 at 1157, Intra-op Given 06/26/2023 8:45 AM CDT 0.3 mg Left Eye naloxone (NARCAN) injection 0.08 mg 0.08 mg, Intravenous, PRN, Other, For respiratory rate less than 8/minute or patient difficult to arouse, Starting on Josephine 06/26/23 at 0815, Until Josephine 06/26/23 at 1157, May repeat every 3 minutes or until patient is responsive to physical stimulation and is able to take deep breaths. Maximum cumulative dose is 0.4 mg (1 mL). Continue to observe; if no response after administering total dose of 0.4 mg notify anesthesiologist STAT., PACU/Recovery naloxone (NARCAN) injection 0.4 mg 0.4 mg, Intravenous, ONCE PRN, Opioid Reversal, Starting on Josephine 06/26/23 at 0815, Until Josephine 06/26/23 at 1157, For 1 dose, For imminent respiratory arrest. Notify MD if naloxone is given., PACU/Recovery ondansetron (ZOFRAN) injection 4 mg 4 mg, Intravenous, Q4H PRN, Nausea, Vomiting, Starting on Josephine 06/26/23 at 0815, Until Josephine 06/26/23 at 1157, If multiple medications are ordered for nausea or vomiting - administer in the following priority based on medications ordered, effectiveness and availability: ondansetron (ZOFRAN) > prochlorperazine (COMPAZINE) > diphenhydrAMINE (BENADRYL) > hydrOXYzine HCl (VISTARIL)> ePHEDrine > scopolamine (TRANSDERM-SCOP)., PACU/Recovery phenylephrine (AK-DILATE) 2.5 % ophthalmic solution 1 Drop 1 Drop, See Admin Instructions, OTHER, Starting on Josephine 06/26/23 at 0810, Until Josephine 06/26/23 at 0827, For 3 doses, Following tetracaine eye drop, instill 1 drop into operative eye every 5-10 minutes x 3, Pre-op Given 06/26/2023 8:27 AM CDT 1 Drop Left Eye Given 06/26/2023 8:22 AM CDT 1 Drop Le ft Eye Given 06/26/2023 8:17 AM CDT 1 Drop Le ft Eye povidone-iodine (BETADINE) 5 % ophthalmic solution ONCE PRN, Starting on Josephine 06/26/23 at 0845, Until Josephine 06/26/23 at 1157, Intra-op Given 06/26/2023 8:45 AM CDT 1 Drop Left Eye prednisoLONE acetate (PRED FORTE) 1 % ophthalmic suspension ONCE PRN, Starting on Josephine 06/26/23 at 0846, Until Josephine 06/26/23 at 1157, Intra-op Given 06/26/2023 8:46 AM CDT 1 Drop Left Eye sodium chloride 0.9% injection 10-60 mL 10-60 mL, Intravenous, PRN, Line Patency, Starting on Josephine 06/26/23 at 0652, Until Josephine 06/26/23 at 1157, Pre-op Given 06/26/2023 8:25 AM CDT 10 mL sodium hyaluronate (HELON DUET) ophthalmic injection ONCE PRN, Starting on Josephine 06/26/23 at 0846, Intra-op Given 06/26/2023 9:05 AM CDT 1 Each Lef t Eye Given 06/26/2023 8:46 AM CDT 1 Each Le ft Eye tetracaine (PONTOCAINE) 0.5 % ophthalmic solution 1 Drop 1 Drop, See Admin Instructions, ONCE, On Josephine 06/26/23 at 0830, For 1 dose, Tetracaine is preferred. Use Proparacaine if Tetracaine is not available. Instill into operative eye prior to all other eye drops., Pre-op Given 06/26/2023 8:14 AM CDT 1 Drop Left Eye tetracaine (PONTOCAINE) 0.5 % ophthalmic solution 1 Drop 1 Drop, See Admin Instructions, ONCE PRN, Other, In operative eye if eye is not patched., Starting on Josephine 06/26/23 at 0928, For 1 dose, Instill 1 drop in operative eye if eye is not patched., Post-op tetracaine (PONTOCAINE) 0.5 % ophthalmic solution ONCE PRN, Starting on Josephine 06/26/23 at 0846, Intra-op Given 06/26/2023 8:46 AM CDT 1 Drop Lef t Eye timolol (TIMOPTIC) 0.5 % ophthalmic solution ONCE PRN, Starting on Josephine 06/26/23 at 0846, Until Josephine 06/26/23 at 1157, Intra-op Given 06/26/2023 8:46 AM CDT 1 Drop Left Eye tropicamide (MYDRIACYL) 1 % ophthalmic solution 1 Drop 1 Drop, See Admin Instructions, OTHER, Starting on Josephine 06/26/23 at 0810, Until Josephine 06/26/23 at 0828, For 3 doses, Following tetracaine eye drop, instill 1 drop into operative eye every 5-10 minutes x 3, Pre-op Given 06/26/2023 8:28 AM CDT 1 Drop Left Eye Given 06/26/2023 8:23 AM CDT 1 Drop Le ft Eye Given 06/26/2023 8:18 AM CDT 1 Drop Le ft Eye documented in this encounter Active and Recently Administered Medications Times are shown in CDT. Scheduled Medication Order 06/24/2023 06/25/2023 06/26/2023 acetaZOLAMIDE (DIAMOX SEQUALS) sustained release capsule 500 mg (COMPLETED) 500 mg, Oral, PRIOR TO DISCHARGE, On Josephine 06/26/23 at 0945, For 1 dose, Do not crush or chew cap. Do not give if the patient has a sulfa allergy., Post-op 0937 (Given - Provid er: Tracie Villalta RN) hyaluronidase 50 units-epinephrine 0.14mg in bupivacaine 0.25%-lidocaine 0.5% eyelid block 10 mL 10 mL, See Admin Instructions, ONCE, On Josephine 06/26/23 at 0830, For 1 dose, To be administered by the surgeon, Pre-op 0830 (Due) moxifloxacin (VIGAMOX) 0.5 % ophthalmic solution 1 Drop (COMPLETED) 1 Drop, See Admin Instructions, OTHER, Starting on Josephine 06/26/23 at 0810, Until Josephine 06/26/23 at 0826, For 3 doses, Following tetracaine eye drop, instill 1 drop into operative eye every 5-10 minutes x 3, Pre-op 0816 (Given - Provid er: Nieves Parada RN)0821 (Given - Provider: Nieves Parada RN)08 (Given - Provider: Nieves Parada RN) phenylephrine (AK-DILATE) 2.5 % ophthalmic solution 1 Drop (COMPLETED) 1 Drop, See Admin Instructions, OTHER, Starting on Josephine 06/26/23 at 0810, Until Josephine 06/26/23 at 0827, For 3 doses, Following tetracaine eye drop, instill 1 drop into operative eye every 5-10 minutes x 3, Pre-op 0817 (Given - Provid er: Nieves Parada RN)0822 (Given - Provider: Nieves Parada, RAMIRO)0827 (Given - Provider: Nieves Parada RN) tetracaine (PONTOCAINE) 0.5 % ophthalmic solution 1 Drop (COMPLETED)(Linked Group 1) 1 Drop, See Admin Instructions, ONCE, On Josephine 06/26/23 at 0830, For 1 dose, Tetracaine is preferred. Use Proparacaine if Tetracaine is not available. Instill into operative eye prior to all other eye drops., Pre-op 0814 (Given - Provid er: Nieves Parada RN) tropicamide (MYDRIACYL) 1 % ophthalmic solution 1 Drop (COMPLETED) 1 Drop, See Admin Instructions, OTHER, Starting on Josephine 06/26/23 at 0810, Until Josephine 4 at 0828, For 3 doses, Following tetracaine eye drop, instill 1 drop into operative eye every 5-10 minutes x 3, Pre-op 0818 (Given - Provid er: Nieves Parada RN)08 (Given - Provider: Nieves Parada RN)08 (Given - Provider: Nieves Parada RN) PRN Medication Order 06/24/2023 06/25/2023 06/26/2023 acetaminophen (TYLENOL) tablet 650 mg 650 mg, Oral, ONCE PRN, Other, Mild Pain (pain score 1-4), Starting on Josephine 06/26/23 at 0928, Until Josephine 06/26/23 at 1157, For 1 dose, Give for mild pain or if patient prefers acetaminophen over other options for pain (all pain scores)., Post-op balance salt (BSS) ophthalmic solution ONCE PRN, Starting on Josephine 06/26/23 at 0845, Until Josephine 24 at 1157, Intra-op 0845 (Given - Provid er: Cooper Coelho MD) carbachol (MIOSTAT) 0.01 % intraocular solution ONCE PRN, Starting on Josephine 06/26/23 at 0859, Until Josephine 24 at 1157, Intra-op 0859 (Given - Provid er: Cooper Coelho MD) EPINEPHrine PF 0.5 mg in balance salt (BSS) 500 mL ONCE PRN, Starting on Josephine 06/26/23 at 0845, Intra-op 0845 (Given - Provid er: Cooper Coelho MD) fentaNYL (SUBLIMAZE) injection 25-50 mcg 25-50 mcg, Intravenous, [id number], Pain, The immediate postop period when faster on-set, short acting agent is desired., Starting on Josephine 06/26/23 at 0815, Until Josephine 24 at 1157, Administer every 5 minutes as needed, to a maximum cumulative dose of 250 mcg. Call Anesthesiologist if additional or greater doses needed For patients with a regional, spinal, or local anesthetic, may give for anticipated pain as the anesthetic wears off. Use fentanyl initially for a short acting agent for treatment of acute post-operative pain.?May be used in conjunction with alonger acting agent if ordered for optimal pain control.?Respiratory rate must be greater than 10 to administer medications., PACU/Recovery fentaNYL (SUBLIMAZE) injection 25-50 mcg 25-50 mcg, Intravenous, [id number], Pain, Procedure, Starting on Josephine 06/26/23 at 0928, Until Josephine 06/26/23 at 1157, For 2 doses, As directed by anesthesiologist, Pre-op HYDROmorphone (DILAUDID) injection 0.2-0.4 mg 0.2-0.4 mg, Intravenous, Q10MIN PRN, Pain, The immediate postop period when longer acting agent is desired., Starting on Josephine 06/26/23 at 0815, Until Josephine 06/26/23 at 1157, Maximum cumulative dose is 2 mg in PACU, call Anesthesiologist if additional or greater dosing is needed. For patients with a regional, spinal, or local anesthetic, may give for anticipated pain as the anesthetic wears off. , PACU/Recovery lidocaine PF (XYLOCAINE) 1 % injection 0.1-0.3 mL 0.1-0.3 mL, Subcutaneous, PRN, Other, for IV insertion, Starting on Josephine 06/26/23 at 0810, For 1 day, Lidocaine to be used for IV starts unless patient refuses., Pre-op lidocaine PF (XYLOCAINE) 1 % injection ONCE PRN, Starting on Josephine 06/26/23 at 0845, Intra-op 0845 (Given - Provid er: Cooper Coelho MD) meperidine (DEMEROL) injection 12.5 mg 12.5 mg, Intravenous, [id number], Shivering, Starting on Josephine 06/26/23 at 0815, Until Josephine 06/26/23 at 1157, For 2 doses, Maximum cumulative dose is 25 mg. Do not give to patients receiving MAO inhibitors (e.g. phenelzine (NARDIL), tranylcypromine (PARNATE), selegiline (ELDEPRYL))., PACU/Recovery midazolam (VERSED) injection 1-2 mg 1-2 mg, Intravenous, [id number], Sedation, Anxiety, Procedure, Starting on Josephine 06/26/23 at 0928, Until Josephine 4 at 1157, As directed by anesthesiologist MAX Dose 2mg, Pre-op moxifloxacin (VIGAMOX) 0.5 % ophthalmic solution ONCE PRN, Starting on Josephine 06/26/23 at 0845, Until Josephine 06/26/23 at 1157, Intra-op 0845 (Given - Provid er: Celestino Moreira RN) moxifloxacin-BSS 1 MG/ML intracameral injection ONCE PRN, Starting on Josephine 06/26/23 at 0845, Until Josephine 06/26/23 at 1157, Intra-op 0845 (Given - Provid er: Celestino Moreira RN) naloxone (NARCAN) injection 0.08 mg 0.08 mg, Intravenous, PRN, Other, For respiratory rate less than 8/minute or patient difficult to arouse, Starting on Josephine 06/26/23 at 0815, Until Josephine 4 at 1157, May repeat every 3 minutes or until patient is responsive to physical stimulation and is able to take deep breaths. Maximum cumulative dose is 0.4 mg (1 mL). Continue to observe; if no response after administering total dose of 0.4 mg notify anesthesiologist STAT., PACU/Recovery naloxone (NARCAN) injection 0.4 mg 0.4 mg, Intravenous, ONCE PRN, Opioid Reversal, Starting on Josephine 06/26/23 at 0815, Until Josephine 06/26/23 at 1157, For 1 dose, For imminent respiratory arrest. Notify MD if naloxone is given., PACU/Recovery ondansetron (ZOFRAN) injection 4 mg 4 mg, Intravenous, Q4H PRN, Nausea, Vomiting, Starting on Josephine 06/26/23 at 0815, Until Josephine 424 at 1157, If multiple medications are ordered for nausea or vomiting - administer in the following priority based on medications ordered, effectiveness and availability: ondansetron (ZOFRAN) > prochlorperazine (COMPAZINE) > diphenhydrAMINE (BENADRYL) > hydrOXYzine HCl (VISTARIL)> ePHEDrine > scopolamine (TRANSDERM-SCOP)., PACU/Recovery povidone-iodine (BETADINE) 5 % ophthalmic solution ONCE PRN, Starting on Josephine 06/26/23 at 0845, Until Josephine 06/26/23 at 1157, Intra-op 0845 (Given - Provid er: Celestino Moreira RN) prednisoLONE acetate (PRED FORTE) 1 % ophthalmic suspension ONCE PRN, Starting on Josephine 06/26/23 at 0846, Until Josephine 06/26/23 at 1157, Intra-op 0846 (Given - Provid er: Celestino Moreira RN) sodium chloride 0.9% injection 10-60 mL 10-60 mL, Intravenous, PRN, Line Patency, Starting on Josephine 06/26/23 at 0652, Until Josephine 06/26/23 at 1157, Pre-op 0825 (Given - Provid er: Nieves Parada RN) sodium hyaluronate (HELON DUET) ophthalmic injection ONCE PRN, Starting on Josephine 06/26/23 at 0846, Intra-op 0846 (Given - Provid er: Cooper Coelho MD)0905 (Given - Provider: Cooper Coelho MD) tetracaine (PONTOCAINE) 0.5 % ophthalmic solution 1 Drop 1 Drop, See Admin Instructions, ONCE PRN, Other, In operative eye if eye is not patched., Starting on Josephine 06/26/23 at 0928, For 1 dose, Instill 1 drop in operative eye if eye is not patched., Post-op tetracaine (PONTOCAINE) 0.5 % ophthalmic solution ONCE PRN, Starting on Josephine 06/26/23 at 0846, Intra-op 0846 (Given - Provid er: Celestino Moreira RN) timolol (TIMOPTIC) 0.5 % ophthalmic solution ONCE PRN, Starting on Josephine 06/26/23 at 0846, Until Josephine 24 at 1157, Intra-op 0846 (Given - Provid er: Celestino Moreira RN) Linked Groups Order Group 1: tetracaine (PONTOCAINE) 0.5 % ophthalmic solution 1 Drop (COMPLETED)Jump to med 1 Drop, See Admin Instructions, ONCE, On Josephine 06/26/23 at 0830, For 1 dose, Tetracaine is preferred. Use Proparacaine if Tetracaine is not available. Instill into operative eye prior to all other eye drops., Pre-op Or proparacaine (OPHTHETIC) 0.5 % ophthalmic solution 1 Drop (COMPLETED) 1 Drop, See Admin Instructions, ONCE, On Josephine 06/26/23 at 0830, For 1 dose, Tetracaine is preferred. Use Proparacaine if Tetracaine is not available. Instill into operative eye prior to all other eye drops., Pre-op documented in this encounter Care Teams Calender Tender Relationship Specialty Start Date End Date Needs Pcp, [place] [address] PCP - General 12/02/22 documented as of this encounter
--- OUTSIDE RECORDS SUMMARY | 2023-08-21 12:43 | XMS_ITS | Encounter Summary ---
[facility] Address [address] [place] [address] Care Team Providers Care Jail Officer Name Role Phone Needs Pcp, Assignment Primary Care Provider [phone] Encounter Details Date Type Department Care Team (Late Contact Info) Description 08/19/2023 Notes/Orders [facility] [address] [place], [place] [id number] Cooper Coelho MD [address] [place], [place] [phone] Social History Tobacco Use Types Packs/Day Years [...] Info) Description 09/03/2023 9:50 AM CDT Appointment [facility] 39[address] Ophthalmology [address] [place], [place] [phone] Cooper Coelho MD [address] [place] [address] 09/23/2023 10:00 AM CDT Appointment [facility] 39[address] Retina [address] 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
--- OUTSIDE RECORDS SUMMARY | 2023-08-21 12:43 | XMS_ITS | Encounter Summary ---
Author Organization [facility] Address [address] [address] Care Team Providers Care Pigment Supplier Name Role Phone Needs Pcp, Assignment Primary Care Provider [phone] Reason for Visit * Reason Comments Questions Encounter Details Date Type Department Care Team ([facility] st Contact Info) Description 07/30/2023 Telephone [facility] 3900 Ophthalmology [address] [facility] [address] Self-Referral, Patient, MD [facility] [address] Questions Social History Tobacco Use Types Packs/Day [...] as of this encounter Nursing Notes * Kristen Escamilla COMT - 07/30/2023 11:53 AM CDT Cancelled PO3 with Dr. Sánchez. Patient's first eye is not improving. Will follow up with Dr. SHANKAR on 08/04/2023. * Kristina Montejo - 07/30/2023 8:31 AM CDT Pt calling wondering if he will need the post op appt with Dr Sánchez tomorrow since he did not have surgery with both eyes. He is hoping for a phone call. documented in this encounter Plan of Treatment Upcoming Encounters Date Type Department Care Team (Late st Contact Info) Description 09/03/2023 9:50 AM CDT Appointment [place] [address] [place] [address]. [place] [address] [place] [address] [place] [address] 09/23/2023 10:00 AM CDT Appointment [facility] [address] [place] [address]. 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
--- OUTSIDE RECORDS SUMMARY | 2023-08-21 12:43 | XMS_ITS | Encounter Summary ---
Author Organization [facility] Address [address] [place] [address] Care Team Providers Care Woodworking Machine Feeder Name Role Phone Needs Pcp, Assignment Primary Care Provider [phone] Reason for Visit * Reason Comments Post Op Exam Encounter Details Date Type Department Care Team ([facility] st Contact Info) Description 08/04/2023 8:40 AM CDT Office Visit [facility] [address] Ophthalmology 3900 [facility] [place], [place] [phone] Cooper Coelho MD [address] [place] [address] Pseudophakia (Primary Dx); History of amblyopia; Vitreomacular traction syndrome of both eyes; CME (cystoid macular edema), left Social History Tobacco Use Types Packs/Day Years [...] this encounter Patient Instructions * Patient Instructions* Cooper Coelho MD - 08/04/2023 8:40 AM CDT Cosopt (also known as Dorzolamide/timolol, and has a blue cap): 1 drop twice daily in both eye(s). Latanoprost (this has a teal cap): 1 drop at bedtime in both (eye)s Use prednisolone 4x/day left eye Use ketorolac 4x/day left eye Continue the diamox pill Try to get your bloodwork done in the next 1 week or so. documented in this encounter Progress Notes * Cooper Coelho MD - 08/04/2023 8:40 AM CDT Corneal surface appears to be turning a corner; DM folds are minimal but present in a trace amount today. The SPK appears reasonable. Not entirely healed, but I would expect his exam to normalize from the cornea standpoint. VMT/ERM: increased macular thickness L eye: resume pred and ketorolac QID. See Yesi in 2-3 weeks.Monitor for corneal toxicity. Would need steroid alone vs prolensa if this recurs. Continue diamox See me 1 month IOP check documented in this encounter Procedure Notes * Cooper Coelho MD - 08/04/2023 8:40 AM CDT Macula OCt shows VMT both eyes, ERM both eyes, and increased macular thickness and CME L eye: see retina. documented in this encounter Plan of Treatment Upcoming Encounters Date Type Department Care Team (Late [facility]) Description 09/03/2023 9:50 AM CDT Appointment [place] [address] [address]mology [address] [place] [address] Cooper Coelho MD [address] [place] [address] 09/23/2023 10:00 AM CDT Appointment [facility] [address]ina [address] [facility] 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, left, moderate stage History of amblyopia Epiretinal membrane (ERM) of both eyes Glaucoma suspect, right documented as of this encounter Results * (ABNORMAL) Basic Metabolic Panel (08/04/2023 10:34 AM CDT) [facility] Sodium 139 136 - 145 mmol/L 08/04/2023 6:03 PM [facility] Potassium 5.1 3.5 - 5.1 mmol/L 08/04/2023 6:03 PM [facility] Chloride 112(H) 98 - 109 mmol/L 08/04/2023 6:03 PM [facility] CO2 20 20 - 29 mmol/L 08/04/2023 6:03 PM [facility] Anion Gap 7 6 - 16 mmol/L 08/04/2023 6:03 PM [facility] Calcium 9.6 8.4 - 10.4 mg/dL 08/04/2023 6:03 PM [facility] BUN 16 7 - 26 mg/dL 08/04/2023 6:03 PM [facility] Creatinine 1.17 0.73 - 1.18 mg/dL 08/04/2023 6:03 PM [facility] Glucose 107(H) 70 - 100 mg/dL 08/04/2023 6:03 PM [facility] Comment:The given reference range is for the fasting state. Non-fasting reference range for glucose is 70 - 180 mg/dL. 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
--- OUTSIDE RECORDS SUMMARY | 2023-08-21 12:43 | XMS_ITS | Encounter Summary ---
Author Organization [facility] Address [address] [place] [address] Care Team Providers Care Bridge Repairer Name Role Phone Needs Pcp, Assignment Primary Care Provider [phone] Reason for Visit * Reason Comments Post Op Exam Encounter Details Date Type Department Care Team ([facility] st Contact Info) Description 06/27/2023 8:30 AM CDT Office Visit [facility] [address] Ophthalmology [address] [facility] [place], [place] [address] Cooper Coelho MD [address] [place], [place] [address] History of amblyopia (Primary Dx); Combined forms of age-related cataract of both eyes; Iridodialysis, left Social History Tobacco Use Types Packs/Day [...] * Patient Instructions* Cooper Coelho MD - 06/27/2023 8:30 AM CDT IN addition to your eyedrop instruction sheet, add these drops: Cosopt (also known as Dorzolamide/timolol, and has a blue cap): 1 drop twice daily in the left eye(s). Latanoprost (this has a teal cap): 1 drop at bedtime in the left (eye)s documented in this encounter Progress Notes * Cooper Coelho MD - 06/27/2023 8:30 AM CDT I reviewed the information stated in the gastroenterology technician's note for today and agree, unless otherwise noted below. I reviewed the patient's past medical history, medications, family history, and social history. General: Generally healthy appearing. Alert and oriented x 3. Subjective: see tech note, agree. Encounter Diagnoses Name Primary? 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, left Slit lamp exam on surgical eye: Cornea: incision intact, lisa negative, with 2+ edema AC is deep with no retained lens fragments, and 1+ cell/flare Iris is round IOL is well centered Vitreous is clear Plan: Use the drops according to schedule -ketorolac QID for 1 week if this was prescribed, then TID for 1 week, then stop, in operative eye -ofloxacin QID for 1 weeks -prednisolone acetate taper 4x/day for 1 week 3x/day for 1 week 2x/day for 1 week Once daily until bottle finished I reviewed signs/symptoms of infection, and need to call with changes Standard precautions/restrictions discussed IOP is up: add latanoprost L eye as well Recheck IOP in roughly 1 week. Cooper Coelho MD documented in this encounter Plan of Treatment Upcoming Encounters Date Type Department Care Team (Late st Contact Info) Description 09/03/2023 9:50 AM CDT Appointment [place] [address] Ophthalmology [address] [place] [address] Cooper Coelho MD [address] [place] [address] 09/23/2023 10:00 AM CDT Appointment [facility] [address] 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
--- OUTSIDE RECORDS SUMMARY | 2023-08-21 12:43 | XMS_ITS | Encounter Summary ---
Author Organization [facility] Address [address] [place] [address] Care Team Providers Care Lube Attendant Name Role Phone Needs Pcp, Assignment Primary Care Provider [phone] Reason for Visit * Reason Comments CONSULT Encounter Details Date Type Department Care Team (Late st Contact Info) Description 08/19/2023 11:00 AM CDT Office Visit [place] [address] Retina [address] [facility] 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 Princess DE JESUS OU 11/29/22 The medications, allergies, and past medical and social histories in the medical record were reviewed. Review of Systems: Pertinent items are noted in patient history; the remainder of the complete review of systems is negative. 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 Risks/benefits of all options discussed, including but not limited to pain, bleeding, RT/RD, loss of vision, loss of eye, potential second surgery, and progression of cataract in phakic patients - Discussed that goal is to decrease progression and secondarily goal is that it also improves distortion and VA - Progression is relatively slow, but studies show that delaying surgery over prolonged time can lead to a worse final outcome compared to earlier intervention - Per pt, in 2018, he saw another eye doctor and was told to see a specialist but never followed up - Suspect that ERM OS is actually stable and he is only noticing some changes now due to cataracts,although mild - 08/19/23 Difficult to assess in setting of above #) ERM, OD - mild, not VS - etio/prog discussed, options of obs v surg - rec obs #) PVD, OD - No signs of RT/RD on exam 360, asymptomatic - Monitor #) Vitreous Syneresis, OS - No signs of RT/RD on exam 360, asymptomatic - Monitor #) Cataract, OD - moderate, no retinal contraindications to surgery - referral sent w/ Lien 01/2023 - Suspect that pt has Amblyopia OD (recalls being told as a kid) and has really not had routine eyeexams; only came in because he failed drivers test, but it has been years since last recheck #) PCIOL, OS - stable, monitor #) Peripheral Reticular Degeneration, OU - mild, not visually signficant - No signs of heme or RT/RD - Maintain healthy lifestyle, no smoking, UV protection #) ? 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 Callback precautions discussed Follow up in 4-6w, OCT OU, Dil OU PN, COA - acting as scribe for Sohail Key MD All notes completed by prior to signing Further details of the management plan can be found in the Patient Instructions section which wasprinted and given to the patient. Attending Physician Attestation: Complete documentation of historical and exam elements from today's encounter can be found in the full encounter summary report (not reduplicated in this progress note). I personally obtained the chief complaint(s) and history of present illness. I confirmed and edited as necessary the review of systems, past medical/surgical history, family history, social history, and examination findings as documented by others; and I examined the patient myself. I personallyreviewed the relevant tests, images, and reports as documented above. I formulated and edited as necessary the assessment and plan and discussed the findings and management plan with the patient and family- Sohail Key MD documented in this encounter Plan of Treatment Upcoming Encounters Date Type Department Care Team (Late st Contact Info) Description 09/03/2023 9:50 AM CDT Appointment [facility] 39[address] Ophthalmology [address] [facility] [address] Cooper Coelho MD [address] [place] [address] 09/23/2023 10:00 AM CDT Appointment [facility] 390 Retina 3900 [facility]. 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, left, moderate stage History of amblyopia Epiretinal membrane (ERM) of both eyes Glaucoma suspect, right documented as of this encounter Visit Diagnoses Diagnosis Epiretinal membrane (ERM) of both eyes- Primary Posterior vitreous detachment of right eye Vitreous degeneration Vitreous syneresis of left eye Pseudophakia Lens replaced by other means Age-related nuclear cataract of right eye Senile nuclear sclerosis 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
--- OUTSIDE RECORDS SUMMARY | 2023-08-21 12:43 | XMS_ITS | Encounter Summary ---
Author Organization Formerly [facility] Address [address] [place] [address] Care Team Providers Care Receiving Worker Name Role Phone Needs Pcp, Assignment Primary Care Provider [phone] Reason for Visit * Reason Comments Appt. Needed Encounter Details Date Type Department Care Team (Late Contact Info) Description 06/27/2023 Telephone [facility] 3900 [facility]hthalmology [address] [facility] [place] [place] [phone] Cooper Coelho MD [address] [place] [phone] Appt. Needed Social History Tobacco Use Types Packs/Day Years [...] as of this encounter Nursing Notes * Dory Tran - 06/27/2023 10:41 AM CDT Patient dropped recall slip, need a follow up appointment. Phone call to patient, left message to return call. Per Dr. Chris Coelho patient needs 1 week massimo with any OD @ [facility]. Please schedule. documented in this encounter Plan of Treatment Upcoming Encounters Date Type Department Care Team ([facility] Contact Info) Description 09/03/2023 9:50 AM CDT Appointment [facility] 390 Ophthalmology 3900 [facility] [place] [address] Cooper Coelho MD [address] [place] [address] 09/23/2023 10:00 AM CDT Appointment [facility] 3900 Retina [address]00 [facility] 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
--- OUTSIDE RECORDS SUMMARY | 2023-08-21 12:43 | XMS_ITS | Encounter Summary ---
Author Organization [facility] Address [address] [place] [address] Care Team Providers Care Bdc Manager Name Role Phone Needs Pcp, Assignment Primary Care Provider [phone] Reason for Visit * Reason Comments Post-Op Check Encounter Details Date Type Department Care Team (Late st Contact Info) Description 07/11/2023 8:50 AM CDT Office Visit [facility] 390 Ophthalmology 3900 [facility] [place], [place] [address] Cooper Coelho MD [address] [place], [place] [address] Pseudophakia (Primary Dx); Iridodialysis, left; History of [...] * Patient Instructions* Cooper Coelho MD - 07/11/2023 8:50 AM CDT In the operative eye, taper the lotemax drop: 2x/day for 2 weeks, then Once daily for 1 time daily until I see you next. Cosopt (also known as Dorzolamide/timolol, and has a blue cap): 1 drop twice daily in BOTH eye(s). Latanoprost (this has a teal cap): 1 drop at bedtime in THE LEFT (eye)s Continue the diamox Check your labs at any [facility] lab. documented in this encounter Progress Notes * Cooper Coelho MD - 07/11/2023 8:50 AM CDT IOP is better. Persistent edema L eye, 1+. His surgery was complicated by: loose zonules, floppy iris; also with atemporal iridodialysis. THere is no DM detachment, there is no cyclodialysis. There is no retained lens. SEe instructions Check BMP for diamox Consider cornea if no improvement in 2-3 weeks. documented in this encounter Plan of Treatment Upcoming Encounters Date Type Department Care Team (Late st Contact Info) Description 09/03/2023 9:50 AM CDT Appointment [place] [address] Ophthalmology [address] [place] [address] Cooper Coelho MD [address] [place] [address] 09/23/2023 10:00 AM CDT Appointment [place] [address] Retina [address] 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, left, moderate stage History of amblyopia Epiretinal membrane (ERM) of both eyes Glaucoma suspect, right documented as of this encounter Results * (ABNORMAL) Basic Metabolic Panel (07/11/2023 10:12 AM T) Sodium 140 136 - 145 mmol/L 07/11/2023 4:13 PM [facility] Potassium 4.1 3.5 - 5.1 mmol/L 07/11/2023 4:13 PM [facility] Chloride 112(H) 98 - 109 mmol/L 07/11/2023 4:13 PM [facility] CO2 21 20 - 29 mmol/L 07/11/2023 4:13 PM [facility] Anion Gap 7 6 - 16 mmol/L 07/11/2023 4:13 PM [facility] Calcium 9.5 8.4 - 10.4 mg/dL 07/11/2023 4:13 PM [facility] BUN 20 7 - 26 mg/dL 07/11/2023 4:13 PM [facility] Creatinine 1.32(H) 0.73 - 1.18 mg/dL 07/11/2023 4:13 PM [facility] Glucose 96 70 - 100 mg/dL 07/11/2023 4:13 PM [facility] Comment:The given reference range is for the fasting state. Non-fasting reference range for glucose is 70 - 180 mg/dL. GFR, Estimated 58(L) >60 mL/min/1.7 3m2 07/11/2023 4:13 PM [facility] Comment:>60 Hours Fasting 0.0 8 - 12 Hours 07/11/2023 4:13 PM [facility] Blood Venipuncture / Unknown 07/11/2023 10:12 AM CDT 07/11/2023 10:12 AM T Cooper Coelho MD LAB_1 [facility] [address] [place] [address] documented in this encounter Visit Diagnoses Diagnosis Pseudophakia- Primary Lens replaced by other means Iridodialysis, left History of amblyopia Personal history of other disorders of nervous system and sense organs Combined forms of age-related cataract of both eyes Other and combined forms of senile cataract documented in this encounter Care Teams Bdc Manager Relationship Specialty Start Date End Date Needs Pcp, [place] [address] PCP - General 12/02/22 documented as of this encounter
--- OUTSIDE RECORDS SUMMARY | 2023-08-21 12:43 | XMS_ITS | Encounter Summary ---
Author Organization [facility] Address [address] [place] [address] Care Team Providers Care Mold Release Worker Name Role Phone Needs Pcp, Assignment Primary Care Provider [phone] Reason for Visit * Auth/Cert (Routine) Specialty [...] Expiration Date Visits Re quested Visits Authorized [id number] 1 1 Encounter Details Date Type Department Care Team (Late st Contact Info) Description 06/26/2023 8:34 AM CDT Anesthesia Event [facility] [address] [facility] [address] [facility] [place] [address] Chavez Noriega MD [address] [place] [address] [place] APRN, CRNA [address] [place], [place] [address] Anesthesia Record Procedure Summary Procedure Name Responsible Anesthesiologist Anesthesia Start Time Anesthesia Stop Time COMPLEX CATARACT EXTRACTION WITH INTRAOCULAR LENS IMPLANT with ab interno canaloplasty , goniotomy (Left: Eye) Chavez Noriega MD 06/26/23 0834 06/26/23 0925 Events Date Time Event Comment 06/26/2023 0834 0834 An Start Anesthesia star t time denotes sedation started by VENKAT currently on case; patient continuously monitored to O.R. By VENKAT 0837 An Start Data 0837 Nasal Canula/O2 Mask 0839 MD/ Present 09 an stop data 09 Care Handoff Note I discusse d with the receiving nurse and we: 1) Identified the patient, cam[place] family member(s) or patient surrogate 2) Identified the responsible practitioner 3) Reviewed the pertinent medical history 4) Discussed the surgical/procedure course 5) Reviewed intra-op anesthesia management and issues during anesthesia 6) Set expectations for the post-procedure period 7) Allowed opportunity for questions and acknowledgement of understanding of report Electronically signed by [place] APRN, CRNA 924 An Stop Care transferre dRosa 09 MD/ Present Meds Name Total midazolam injection 2 mg/2 mL (VERSED) 2 mg fentaNYL injection (SUBLIMAZE) 75 mcg Lidocaine 3.5% Ophthalmic Gel 2 Drop sodium chloride 0.9% for injection (for flushes) 6 mL * Agents Name 02 Delivery Device O2 N2O Air Nitrous Oxide () * Blood No blood administrations on file. Lines, Drains, and Airways Type Details Placement Removal Peripheral IV Placement Date: 06/26/23; Placement Time: 823; Pre-existing: No; Inserted by?: RN; Size (Gauge): 22 G; Orientation: Right; Site Prep: Chlorhexidine; Insertion attempts: 1; Blood draw with insertion?: no; Patient Tolerance: Tolerated well; Removal Date: 06/26/23; Removal Time: 950; Removal Reason: No longer needed; Catheter Tip: Intact 06/26/23 0824 by Nieves Parada RN 06/26/23 0951 by Tracie Villalta RN Incision/Surgical Site 06/26/23; 0848; # 1; No; Eye; Left; 06/26/23; 0951 06/26/23 0848 by Celestino Moreira RN 06/26/23 09 by Tracie Villalta, RN documented in this encounter Social History Tobacco Use Types Packs/Day Years [...] on file documented as of this encounter Miscellaneous Notes * Anesthesia Postprocedure Evaluation - Chavez Noriega MD - 06/26/2023 9:36 AM CDT [facility] Anesthesia Post-op Note Patient: Ambrose Camp Post-Op Diagnosis: Pre-Op Diagnosis Codes: * Combined forms of age-related cataract of both eyes [H25.813] * Capsular glaucoma with lens pseudoexfoliation, left, moderate stage [H40.1422] * History of amblyopia [Z86.69] * Epiretinal membrane (ERM) of both eyes [H35.373] * Glaucoma suspect, right [H40.001] Procedure Performed: Procedure(s): Left - COMPLEX CATARACT EXTRACTION WITH INTRAOCULAR LENS IMPLANT with ab interno canaloplasty , goniotomy - Wound Class: 1 CLEAN Anesthesia Type: MAC Post-op vital signs: Vitals Value Taken Time BP 133/81 06/26/2324 Temp 36.2 ??C (97.2 ??F) 06/26/23923 Pulse 60 06/26/2324 Resp 16 06/26/23923 SpO2 97 % 06/26/23923 Pain Score: Preferred Pain Scale: number (Numeric Rating Pain Scale) (0-10) Pain Rating: Rest: 0 Post-op assessment: Patient location: Phase 2 Airway Status: Patent Cardiovascular function: Satisfactory Hydration status: Satisfactory PONV: None Level of Consciousness: Awake Fully Participates Postop Assessment: Patient tolerated procedure well. Electronically signed by: Chavez Noriega MD 06/26/2023 9:36 AM * Anesthesia Preprocedure Evaluation - Chavez Noriega MD - 06/26/2023 8:23 AM CDT [facility] Anesthesia Pre-op Evaluation Procedure: CATARACT EXTRACTION WITH INTRAOCULAR LENS IMPLANT with ab interno canaloplasty and possible goniotomy, Left HPI: 72 y.o. old male. Pre-Op Diagnosis Codes: * Combined forms of age-related cataract of both eyes [H25.813] * Capsular glaucoma with lens pseudoexfoliation, left, moderate stage [H40.1422] * History of amblyopia [Z86.69] * Epiretinal membrane (ERM) of both eyes [H35.373] * Glaucoma suspect, right [H40.001] Last Fluid Intake Time: 2344 Last Fluid Intake Date: 06/25/23 Last Food Intake Date: 06/25/23 Last Food Intake Time: 2299 No Known Allergies History reviewed. No pertinent past medical history. 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 No pertinent surgical history. Outpatient Medications as of 06/26/2023 Medication Sig aspirin EC 81 MG enteric coated tablet Take 1 Tablet (81 mg) by mouth daily. Facility-Administered Medications as of 06/26/2023 Medication Dose Route Frequency fentaNYL (SUBLIMAZE) injection 25-50 mcg 25-50 mcg Intravenous Q5MIN PRN hyaluronidase 50 units-epinephrine 0.14mg in bupivacaine 0.25%-lidocaine 0.5% eyelid block 10 mL 10mL See Admin Instructions Once HYDROmorphone (DILAUDID) injection 0.2-0.4 mg 0.2-0.4 mg Intravenous Q10MIN PRN lidocaine PF (XYLOCAINE) 1 % injection 0.1-0.3 mL 0.1-0.3 mL Subcutaneous PRN meperidine (DEMEROL) injection 12.5 mg 12.5 mg Intravenous Q5MIN PRN moxifloxacin (VIGAMOX) 0.5 % ophthalmic solution 1 Drop 1 Drop See Admin Instructions Other (See Comments) naloxone (NARCAN) injection 0.08 mg 0.08 mg Intravenous PRN naloxone (NARCAN) injection 0.4 mg 0.4 mg Intravenous ONCE PRN ondansetron (ZOFRAN) injection 4 mg 4 mg Intravenous Q4H PRN phenylephrine (AK-DILATE) 2.5 % ophthalmic solution 1 Drop 1 Drop See Admin Instructions Other (SeeComments) [COMPLETED] tetracaine (PONTOCAINE) 0.5 % ophthalmic solution 1 Drop 1 Drop See Admin Instructions Once Or [COMPLETED] proparacaine (OPHTHETIC) 0.5 % ophthalmic solution 1 Drop 1 Drop See Admin InstructionsOnce sodium chloride 0.9% injection 10-60 mL 10-60 mL Intravenous PRN tropicamide (MYDRIACYL) 1 % ophthalmic solution 1 Drop 1 Drop See Admin Instructions Other (See Comments) Labs: No results found for: SODIUM, K, CHLORIDE, CO2, BUN, CREATININE, GLUCOSE No results found for: WBC, HGB, HCT, PLTS No results found for: INR Blood Bank: No results found for: ABO, ABSCR EKG: No results found for this or any previous visit. Physical Exam: BP (!) 140/99 Pulse 61 Temp (!) 35.9 ??C (96.6 ??F) (Temporal Artery) Resp 16 SpO2 99% Assessment/Plan: Review of Systems Patient does not have GERD. Patient is a current smoker. The patient denies alcohol use. Patient denies any recent URI. History of PONV: No. History of motion sickness: No. Patient denies any personal or family history of anesthesia complications. NPO Status: Acceptable. Exam Mental Status: Alert and oriented. Mallampati score: I (One). Mouth opening: Normal Thyromental Distance: > 3 finger breadths and Normal Neck Extension: Full Neck Circumference > 40 cm?: No Current airway assessment:Normal Cardiac Exam: Regular rate and rhythm. Respiratory Exam: Breath sounds clear to auscultation Assessment ASA Status: 2 . Plan Anesthesia type: MAC Induction: Intravenous Maintenance: PONV Risk Score Adult: 0 Anesthetic plan, risks, benefits and alternatives discussed with the patient who agrees to the anesthesia treatment plan. H&P Reviewed and Patient examined, no change observed IV access Antibiotics per surgery Electronically signed by: Chavez Noriega MD 06/26/2023 8:23 AM documented in this encounter Plan of Treatment Upcoming Encounters Date Type Department Care Team (Late st Contact Info) Description 09/03/2023 9:50 AM CDT Appointment [place] [address] Ophthalmology [address] [place] [address] Cooper Coelho MD [address] [place] [address] 09/23/2023 10:00 AM CDT Appointment [facility] 39[address] Retina [address] [facility] 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, left, moderate stage History of amblyopia Epiretinal membrane (ERM) of both eyes Glaucoma suspect, right documented as of this encounter Visit Diagnoses Not on filedocumented in this encounter Administered Medications Inactive Administered Medications - up to 3 most recent administrations Medication Order MAR Action Action Date Dose Rate Site fentaNYL (SUBLIMAZE) injection Intravenous, Starting on Josephine 06/26/23 at 0834, Until Josephine 06/26/23 at 0925 Given 06/26/2023 9:05 AM CDT 25 mcg Given 06/26/2023 8:34 AM CDT 50 mcg lidocaine (AKTEN) 3.5 % ophthalmic gel Left Eye, Starting on Josephine 06/26/23 at 0834 Given 06/26/2023 8:34 AM CDT 2 Drops midazolam (VERSED) injection Intravenous, Starting on Josephine 06/26/23 at 0834, Until Josephine 06/26/23 at 0925 Given 06/26/2023 9:05 AM CDT 1 mg Given 06/26/2023 8:34 AM CDT 1 mg sodium chloride 0.9% injection Intravenous, Starting on Josephine 06/26/23 at 0834, Until Josephine 06/26/23 at 0925 Given 06/26/2023 9:05 AM CDT 3 mL Given 06/26/2023 8:34 AM CDT 3 mL documented in this encounter Care Teams Mold Release Worker Relationship Specialty Start Date End Date Needs Pcp, [place] [address] PCP - General 10/2/23 documented as of this encounter
--- OUTSIDE RECORDS SUMMARY | 2023-08-21 12:43 | XMS_ITS | Encounter Summary ---
Author Organization [facility] Address [address], [place] [address] Care Team Providers Care Ostrich Farmer Name Role Phone Needs Pcp, Assignment Primary Care Provider [phone] Encounter Details Date Type Department Care Team (Late Contact Info) Description 07/11/2023 10:30 AM CDT Lab Visit [facility] [id number] [place] [phone] Pseudophakia; Iridodialysis, left; History of amblyopia; Combined [...] Info) Description 09/03/2023 9:50 AM CDT Appointment [facility] [address] Op[address]mology [address] [place], [place] [id number] Cooper Coelho MD [address] [place] [address] 09/23/2023 10:00 AM CDT Appointment [facility] 39[address] Retina [address] 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, left, moderate stage History of amblyopia Epiretinal membrane (ERM) of both eyes Glaucoma suspect, right documented as of this encounter Procedures Procedure Name Priority Date/Time Associated Diagnosis Comments BASIC METABOLIC PANEL Routine 07/11/2023 10:12 AM CDT Pseudophakia Iridodialysis, left History of amblyopia Combined forms of age-related cataract of both eyes documented in this encounter Results * (ABNORMAL) Basic Metabolic Panel (07/11/2023 10:12 AM CDT) Sodium 140 136 - 145 mmol/L 07/11/2023 4:13 PM [facility] Potassium 4.1 3.5 - 5.1 mmol/L 07/11/2023 4:13 PM [facility] Chloride 112(H) 98 - 109 mmol/L 07/11/2023 4:13 PM [facility] CO2 21 20 - 29 mmol/L 07/11/2023 4:13 PM [facility] Anion Gap 7 6 - 16 mmol/L 07/11/2023 4:13 PM [facility] Calcium 9.5 8.4 - 10.4 mg/dL 07/11/2023 4:13 PM [facility] BUN 20 7 - 26 mg/dL 07/11/2023 4:13 PM [facility] Creatinine 1.32(H) 0.73 - 1.18 mg/dL 07/11/2023 4:13 PM [facility] Glucose 96 70 - 100 mg/dL 07/11/2023 4:13 PM [facility] Comment:The given reference range is for the fasting state. Non-fasting reference range for glucose is 70 - 180 mg/dL. GFR, Estimated 58(L) >60 mL/min/1.7 3m2 07/11/2023 4:13 PM CDT [facility] Comment:>60 Hours Fasting 0.0 8 - 12 Hours 07/11/2023 4:13 PM T [facility] Blood Venipuncture / Unknown 07/11/2023 10:12 AM CDT 07/11/2023 10:12 AM CDT Cooper Coelho MD LAB_1 [facility] [address] [place] [address] documented in this encounter Visit Diagnoses Diagnosis Pseudophakia Lens replaced by other means Iridodialysis, left History of amblyopia Personal history of other disorders of nervous system and sense organs Combined forms of age-related cataract of both eyes Other and combined forms of senile cataract documented in this encounter Care Teams Ostrich Farmer Relationship Specialty Start Date End Date Needs Pcp, [place] [address] PCP - General 12/02/22 documented as of this encounter
--- OUTSIDE RECORDS SUMMARY | 2023-08-21 12:43 | XMS_ITS | Encounter Summary ---
Author Organization [facility] Address [address] [place] [address] Care Team Providers Care Radar Operator Name Role Phone Needs Pcp, Assignment Primary Care Provider [phone] Reason for Visit * Reason Comments Post Op Exam Encounter Details Date Type Department Care Team (Late st Contact Info) Description 07/04/2023 2:10 PM CDT Office Visit [facility] 3900 Ophthalmology [address]00 [facility] [place], [place] [id number] Cooper Coelho MD [address] [place], [place] [id number] Pseudophakia (Primary Dx) Social History Tobacco Use Types Packs/Day Years [...] * Patient Instructions* Cooper Coelho MD - 07/04/2023 2:10 PM CDT Cosopt (also known as Dorzolamide/timolol, and has a blue cap): 1 drop twice daily in the BOTH eye(s). Latanoprost (this has a teal cap): 1 drop at bedtime in the left (eye)s Use the lotemax in the left eye 3x/day for 1 week, then 2x/day for 1 week, then Once daily for 1 week, then stop STOP THE KETOROLAC (BUITRAGO) STOP THE OFLOXACIN (MCCLURE) START DIAMOX PILL TWICE DAILY BY MOUTH YOU CAN ALSO USE REFRESH PLUS PRESERVATIVE FREE ARTIFICIAL TEARS IF YOU NEED EXTRA COMFORT FOR THE EYES. documented in this encounter Progress Notes * Cooper Coelho MD - 07/04/2023 2:10 PM CDT IOP: at this point marginally above preop (was 30): add diamox. Discussed side effects. Otherwise ahealthy individual so short term diamox should be low risk. Also change to lotemax to blunt steroid response. Stop ketorolac See instructions. RTC 1 week documented in this encounter Plan of Treatment Upcoming Encounters Date Type Department Care Team (Late st Contact Info) Description 09/03/2023 9:50 AM CDT Appointment [place] [address] Ophthalmology [address] [facility] [place] [address] Cooper Coelho MD [address] [place] [address] 09/23/2023 10:00 AM CDT Appointment [place] [address] Retina [address] [facility] 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
--- OUTSIDE RECORDS SUMMARY | 2023-08-21 12:43 | XMS_ITS | Encounter Summary ---
Author Organization [facility] Address [address] [place] [address] Care Team Providers Care Plate Maker Name Role Phone Needs Pcp, Assignment Primary Care Provider [phone] Encounter Details Date Type Department Care Team (Late st Contact Info) Description 08/04/2023 10:50 AM CDT Lab Visit [facility] [address] [place] [address] Pseudophakia Social History Tobacco Use Types Packs/Day Years [...] Info) Description 09/03/2023 9:50 AM CDT Appointment [facility] [address]hthalmology [address] [place] [facility] [place], [place] [address] Cooper Coelho MD [address] [place], [place] [id number] 09/23/2023 10:00 AM CDT Appointment [facility] [address] [place] [address] [facility]. [place], [place] [address] Sohail Key MD [address] [place] [address] Scheduled Procedures Name Priority Associated Diagnoses Date/Ti [...] PANEL Routine 08/04/2023 10:34 AM CDT Pseudophakia documented in this encounter Results * (ABNORMAL) Basic Metabolic Panel (08/04/2023 10:34 AM CDT) Sodium 139 136 - 145 mmol/L 08/04/2023 6:03 PM [facility] Potassium 5.1 3.5 - 5.1 mmol/L 08/04/2023 6:03 PM [facility] Chloride 112(H) 98 - 109 mmol/L 08/04/2023 6:03 PM [facility] CO2 20 20 - 29 mmol/L 08/04/2023 6:03 PM [facility] Anion Gap 7 6 - 16 mmol/L 08/04/2023 6:03 PM [facility] Calcium 9.6 8.4 - 10.4 mg/dL 08/04/2023 6:03 PM [facility] BUN 16 7 - 26 mg/dL 08/04/2023 6:03 PM [facility] Creatinine 1.17 0.73 - 1.18 mg/dL 08/04/2023 6:03 PM [facility] Glucose 107(H) 70 - 100 mg/dL 08/04/2023 6:03 PM [facility] Comment:The given reference range is for the fasting state. Non-fasting reference range for glucose is 70 - 180 mg/dL. GFR, Estimated >60 >60 mL/min/1.7 3m2 08/04/2023 6:03 PM [facility] Hours Fasting 0.0 8 - 12 Hours 08/04/2023 6:03 PM [facility] Blood Venipuncture / Unknown 08/04/2023 10:34 AM CDT 08/04/2023 10:34 AM CDT Cooper Coelho MD LAB_1 [facility] [address] [place] [address] documented in this encounter Visit Diagnoses Diagnosis Pseudophakia Lens replaced by other means documented in this encounter Care Teams Plate Maker Relationship Specialty Start Date End Date Needs Pcp, [place] [address] PCP - General 12/02/22 documented as of this encounter
--- OUTSIDE RECORDS SUMMARY | 2023-08-21 12:44 | XMS_ITS | Encounter Summary ---
Author Organization [facility] Address [address] [place] [address] Care Team Providers Care Parking Station Attendant Name Role Phone Needs Pcp, Assignment Primary Care Provider [phone] Encounter Details Date Type Department Care Team (Latest Contact Info) Description 05/16/2023 Orders Only HIM DEPARTMENT Provider, [place] [address] Social History Tobacco Use Types Packs/Day Years Used Date Smoking Tobacco: Never Assessed PHQ-2 Answer Date Recorded PHQ-2 Score 0 06/20/2023 Sex and Gender Information Value Date Recorded Sex Assigned at Not on file Gender Identity Not on file Sexual Orientation Not on file documented as of this encounter Plan of Treatment Upcoming Encounters Date Type Department Care Team (Late st Contact Info) Description 09/03/2023 9:50 AM CDT Appointment [facility] 39[address] Ophthalmology [address] [place] [address] Cooper Coelho MD [address] [place] [address] 09/23/2023 10:00 AM CDT Appointment [facility] [address] Retina [address] 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, left, moderate stage History of amblyopia Epiretinal membrane (ERM) of both eyes Glaucoma suspect, right documented as of this encounter Procedures Procedure Name Priority Date/Time Associated Diagnosis Comments EYE PENTACAM 05/16/2023 documented in this encounter Results * EYE PENTACAM (05/16/2023) Interface Provider MD DUMMY/OTHER/AR documented in this encounter Visit Diagnoses Not on filedocumented in this encounter Care Teams Parking Station Attendant Relationship Specialty Start Date End Date Needs Pcp, [place] [address] PCP - General 12/02/22 documented as of this encounter
--- OUTSIDE RECORDS SUMMARY | 2023-08-21 12:44 | XMS_ITS | Encounter Summary ---
Author Organization [facility] Address [address] [place] [address] Care Team Providers Care Food Checkers And Cashiers Supervisor Name Role Phone Needs Pcp, Assignment Primary Care Provider [phone] Reason for Referral * Procedure/Equipment (Routine) - [...] INTRAOCULAR LENS IMPLANT Cooper Coelho MD [address] [place] [address] Referral ID Status Reason Start Date Expiration Date V isits Requested Visits Authorized [id number] Incomplete 05/16/2023 08/14/2024 1 1 * Procedure/Equipment [...] and possible goniotomy Cooper Coelho MD [address] [place] [address] Referral ID Status Reason Start Date Expiration Date V isits Requested Visits Authorized [id number] Incomplete 05/16/2023 08/14/2024 1 1 Reason for Visit * Reason Comments CONSULT CATARACTS GLAUCOMA Encounter Details Date Type Department Care Team (Late st Contact Info) Description 05/16/2023 1:00 PM CDT Office Visit [place] [address] Ophthalmology [address] [facility] [place] [address] Cooper Coelho MD [address] [place] [address] Combined forms of age-related cataract of both [...] I reviewed the information stated in the dental technician apprentice's note for today and agree, unless otherwise [...] Info) Description 09/03/2023 9:50 AM CDT Appointment [place] [address] [address] [place], [place] [address] Cooper Coelho MD [address] [place], [place] [address] 09/23/2023 10:[address] [facility] [address] [place] [address] [facility] [place], [place] [address] Sohail Key MD [address] [place] [address] Scheduled Procedures Name Priority Associated Diagnoses Date/Ti [...] right documented in this encounter Care Teams Food Checkers And Cashiers Supervisor Relationship Specialty Start Date End Date Needs Pcp, [place] [address] PCP - General 12/02/22 documented as of this encounter
--- OUTSIDE RECORDS SUMMARY | 2023-08-21 12:44 | XMS_ITS | Encounter Summary ---
Author Organization [facility] Address [address], [place] [address] Care Team Providers Care Cinder Pit Worker Name Role Phone Needs Pcp, Assignment Primary Care Provider [phone] Reason for Visit * Reason Comments Questions Encounter Details Date Type Department Care Team (Late Contact Info) Description 05/26/2023 Telephone [facility] 3900 Ophthalmology [address] [facility] [place] [address] Self-Referral, Patient, [place] [address] Questions Social History Tobacco Use [...] Info) Description 09/03/2023 9:50 AM CDT Appointment [facility] [address] Ophthalmology [address] [facility] [place] [address] Cooper Coelho MD [address] [place] [address] 09/23/2023 10:00 AM CDT Appointment [facility] [address] Retina [address] [facility] 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
--- OUTSIDE RECORDS SUMMARY | 2023-08-21 12:44 | XMS_ITS | Encounter Summary ---
Author Organization [facility] Address [address], [place] [address] Care Team Providers Care Sex Offender Treatment Professional Name Role Phone Needs Pcp, Assignment Primary Care Provider [phone] Reason for Visit * Reason Comments PRE-OP EXAM CATARACT EXTRACTION WITH INTRAOCULAR LENS IMPLANT with ab interno canaloplasty and possible goniotomy on 06/25 and 07/[address] Coelho at [facility] in [place] Encounter Details Date Type Department Care Team (Late st Contact Info) Description 06/20/2023 2:30 PM CDT Pre-Op Visit [place] [address] [facility] [address] [place] [phone] [place] [address] [place] [address] Preop examination (Primary Dx); Screening for cholesterol level; Screening for colon cancer Social History Tobacco Use Types Packs/Day Years [...] Sign Reading Time Taken Comments Blood Pressure 138/85 06/20/2023 2:39 PM CDT Pulse 66 06/20/2023 2:39 PM CDT Temperature 36.2 ??C (97.2 ??F) 06/20/2023 2:27 PM CD T Respiratory Rate 18 06/20/2023 2:27 PM CDT Oxygen Saturation 98% 06/20/2023 2:27 PM CDT Inhaled Oxygen Concentration - - Weight 73.5 kg (162 lb 1.6 oz) 06/20/2023 2:27 P M CDT Height 177.8 cm (5' 10) 06/20/2023 2:27 PM CDT Body Mass Index 23.26 06/20/2023 2:27 PM CDT documented in this encounter Patient Instructions * Patient Instructions* Ambrose Roth MD - 06/20/2023 2:30 PM CDT aspirin EC 81 MG enteric coated tablet [[id number]] - Continue taking as usual. Follow your individualized medication recommendations as described above. In addition, please stop all hypq-rrr-ycyodkr medications including aspirin, ibuprofen (Advil, Motrin), naproxen (Aleve, Naprosyn), herbal remedies and supplements one week prior to procedure unless directed otherwise by your care team. You may continue to take acetaminophen (Tylenol) up to the dayof your procedure. Continue all other medications as currently taking. Let your care team know if you have questions. On the day of your procedure, do not wear any hair product including hair sprays and gels and avoidusing body sprays and deodorants/antiperspirants. Bring with you to the site of the procedure: Any oral appliances or CPAP equipment related to sleep apnea Any other health-related equipment or devices you use daily documented in this encounter Progress Notes * Ambrose Roth MD - 06/20/2023 2:30 PM CDT Pre-Operative Assessment 06/20/2023 ET Amb PreOp Assessment Details Procedure CATARACT EXTRACTION WITH INTRAOCULAR LENS IMPLANT with ab interno canaloplasty and possible goniotomy Surgeon Dr. Meliton Benavidezllet Amb[facility] Procedure Date 06/26/2023 Second Procedure [...] 06/20/2023, 2:49 PM documented in this encounter Plan of Treatment Upcoming Encounters Date Type Department Care Team (Late st Contact Info) Description 09/03/2023 9:50 AM CDT Appointment [facility] [address] Ophthalmology [address] [facility] [place] [address] Cooper Coelho MD [address] [place] [address] 09/23/2023 10:00 AM CDT Appointment [facility] [address] Retina [address] [facility] 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
--- OUTSIDE RECORDS SUMMARY | 2023-08-21 12:44 | XMS_ITS | Encounter Summary ---
Author Organization [facility] Address [address] [place] [id number] Care Team Providers Care Sanitary Engineering Teacher Name Role Phone Needs Pcp, Assignment Primary Care Provider [phone] Reason for Visit * Auth/Cert (Routine) Specialty [...] Expiration Date Visits Re quested Visits Authorized [id number] 1 1 Encounter Details Date Type Department Care Team (Latest Contact Info) Description 06/26/2023 8:04 AM CDT - 06/26/2023 9:56 AM CDT Hospital Encounter [facility] [address] [facility] B[address] Ambul Surgery [address] [facility] [address] Cooper Coelho MD [address] [place] [address] Discharge Disposition: Home Social History Tobacco Use Types Packs/Day Years [...] and possible goniotomy Surgeon Dr. Meliton Muse [facility] Procedure Date 06/26/2023 Second Procedure [...] 3. Canaloplasty using OMNI?? Surgical System (CPT 35523-ir not bill in addition to 14333) 4. Goniotomy using [facility] System (Bill CPT code 42169 as primary procedure) LENS IMPLANT: J+J diB00 19.5 diopter lens SURGEON: Cooper Coelho MD CLASSIFIED ADVERTISING MANAGER: None. ANESTHESIA: Topical and intraocular nonpreserved lidocaine. EBL: Less than 1 ml. COMPLICATIONS: Small iridodialysis at [facility]. DESCRIPTION OF PROCEDURE: The patient [...] was hydrodissected, and then removed by phaco [id number] technique. The residual cortex and epinucleus were [...] I removed the ring using the ring [place] line attendant. documented in this encounter Plan of Treatment Upcoming Encounters Date Type Department Care Team (Late st Contact Info) Description 09/03/2023 9:50 AM CDT Appointment [place] [address] Op[facility] Almaz Rodriguez [facility] [place] [address] Cooper Coelho MD [facility] [place] [address] 09/23/2023 10:00 AM CDT Appointment [facility] [address] [facility] [address] [facility] [address] Sohail Key MD [address] [place] [address] Scheduled Procedures Name Priority Associated Diagnoses Date/Ti [...] right documented in this encounter Visit Diagnoses * Plan of Care - Nancy Sky RN - 06/23/2023 10:50 AM CDT PPA call completed by calling [phone] and spoke to patient. Advised of arrival time 8:05 AM. Reviewed pre-procedure questions, detailed instructions, with NPO guidelines, route delivery service driver requirements and address given. All questions answered, no other needs at this time. Call back number [phone] for any questions/concerns. Nancy Sky RN 10:50 [...] (SUBLIMAZE) injection 25-50 mcg 25-50 mcg, Intravenous, [id number], Pain, The immediate postop period when faster [...] (SUBLIMAZE) injection 25-50 mcg 25-50 mcg, Intravenous, [id number], Pain, Procedure, Starting on Josephine 06/26/23 at [...] (DEMEROL) injection 12.5 mg 12.5 mg, Intravenous, [id number], Shivering, Starting on Josephine 06/26/23 at 0815, Until Josephine 06/26/23 at 1157, For 2 doses, Maximum cumulative dose is 25 mg. Do not give to patients receiving MAO inhibitors (e.g. phenelzine (NARDIL), tranylcypromine (PARNATE), selegiline (ELDEPRYL))., PACU/Recovery midazolam (VERSED) injection 1-2 mg 1-2 mg, Intravenous, [id number], Sedation, Anxiety, Procedure, Starting on Josephine 06/26/23 [...] or patient difficult to arouse, Starting on Josehpine 06/26/23 at 0815, Until Josephine 06/26/23 at [...] 0817 (Given - Provid er: Nieves Parada RN)08 (Given - Provider: Nieves Parada RN)08 (Given - Provider: Nieves Parada RN) tetracaine [...] 0818 (Given - Provid er: Nieves Parada RN)0823 (Given - Provider: Nieves Parada, RN)0828 (Given - Provider: Nieves Parada RN) PRN [...] 0859, Until Josephine 06/26/23 at 1157, Intra-op 0859 (Given - Provid er: Cooper Coelho MD) EPINEPHrine PF 0.5 mg in balance salt (BSS) 500 mL ONCE PRN, Starting on Josephine 06/26/23 at 0845, Intra-op 0845 (Given - Provid er: Cooper Coelho MD) fentaNYL (SUBLIMAZE) injection 25-50 mcg 25-50 mcg, Intravenous, [id number], Pain, The immediate postop period when faster [...] (SUBLIMAZE) injection 25-50 mcg 25-50 mcg, Intravenous, [id number], Pain, Procedure, Starting on Josephine 06/26/23 at [...] (DEMEROL) injection 12.5 mg 12.5 mg, Intravenous, [id number], Shivering, Starting on Josephine 06/26/23 at 0815, Until Josephine 06/26/23 at 1157, For 2 doses, Maximum cumulative dose is 25 mg. Do not give to patients receiving MAO inhibitors (e.g. phenelzine (NARDIL), tranylcypromine (PARNATE), selegiline (ELDEPRYL))., PACU/Recovery midazolam (VERSED) injection 1-2 mg 1-2 mg, Intravenous, [id number], Sedation, Anxiety, Procedure, Starting on Josephine 06/26/23 at 0928, Until Josephine 06/26/23 at 1157, As directed by anesthesiologist MAX Dose 2mg, Pre-op moxifloxacin (VIGAMOX) 0.5 % ophthalmic solution ONCE PRN, Starting on Josephine 06/26/23 at 0845, Until Josephine 4 at 1157, Intra-op 0845 (Given - Provid [...] at 0815, Until Josephine 4 at 1157, For 1 dose, For imminent respiratory arrest. Notify MD if naloxone is given., PACU/Recovery ondansetron (ZOFRAN) injection 4 mg 4 mg, Intravenous, Q4H PRN, Nausea, Vomiting, Starting on Josephine 06/26/23 at 0815, Until Josephine 4 at 1157, If multiple medications are ordered [...] 0846, Intra-op 0846 (Given - Provid er: Celesitno Moreira RN) timolol (TIMOPTIC) 0.5 % ophthalmic [...] Pre-op documented in this encounter Care Teams Sanitary Engineering Teacher Relationship Specialty Start Date End Date Needs Pcp, [place] [address] PCP - General 12/02/22 documented as of this encounter
--- NOTE | 2023-08-21 13:00 | CRLHL7_ITS ---
For Patients: As a result of the Cures Act, medical imaging exams and procedure reports are released immediately into your electronic medical record. You may view this report before your referring provider. If you have questions, please contact your health care provider. INDICATION: Lung cancer screening. History of smoking. TECHNIQUE: Low-dose lung cancer screening non-contrast CT chest. Dose reduction techniques were used. COMPARISON: 04/11/2021 FINDINGS: NODULES: 2 millimeter nodule anterior right lung, series 3, image 71. 1 millimeter nodule right upper lobe posteriorly, 3/39. LUNGS AND PLEURA: Mild dependent areas of scarring. MEDIASTINUM: No adenopathy. CORONARY ARTERY CALCIFICATION: Present. LIMITED UPPER ABDOMEN: Upper abdomen unremarkable. MUSCULOSKELETAL: Chronic wedge compression deformities at the thoracolumbar junction. Chronic rib fracture deformities. IMPRESSION: Small right-sided pulmonary nodules measuring 2 millimeters or less. LUNG-RADS CATEGORY: 2: Benign. RADIOLOGIST RECOMMENDATION: Continue annual screening with low-dose CT chest in 12 months. Please note that all CT scans at this facility use dose modulation, iterative reconstruction, and/or weight-based dosing when appropriate to reduce radiation dose to as low as reasonably achievable. Dictated by Ambrose Mac MD @ 08/22/2023 12:41:45 PM (Electronically Signed)
== END 2023-08-21 12:40 | disposition home or self-care (01) ==
PROVIDERS: PCP Internal Medicine; Visit Provider Internal Medicine
DX: Z12.2 Encounter for screening for malignant neoplasm of respiratory organs (principal); R91.8 Other nonspecific abnormal finding of lung field; Z87.891 Personal history of nicotine dependence
CPT/HCPCS: 71271

== ENCOUNTER 2024-08-26 10:47 | Outpatient (CLI) | payer MEDICARE, SELFPAY ==
--- NOTE | 2024-08-26 11:00 | CRLHL7_ITS ---
For Patients: As a result of the Century Cures Act, medical imaging exams and procedure reports are released immediately into your electronic medical record. You may view this report before your referring provider. If you have questions, please contact your health care provider. INDICATION: Lung cancer screening. History of smoking. High risk patient with greater than 30 pack-year smoking history. TECHNIQUE: Low-dose lung cancer screening non-contrast CT chest. Dose reduction techniques were used. COMPARISON: None. FINDINGS: NODULES: 2 millimeter nodule left upper lobe, 05/31. 2.5 millimeter nodule subpleural lung right upper lobe, 05/21. Other smaller nodules are present elsewhere. LUNGS AND PLEURA: Emphysema. Left lower lobe scarring. MEDIASTINUM: No adenopathy. CORONARY ARTERY CALCIFICATION: Mild. LIMITED UPPER ABDOMEN: Unremarkable. MUSCULOSKELETAL: Chronic wedge compression fracture L1. IMPRESSION: Small bilateral nodules measuring 2.5 millimeters or less. LUNG-RADS CATEGORY: 2: Benign. RADIOLOGIST RECOMMENDATION: Continue annual screening with low-dose CT chest in 12 months. Please note that all CT scans at this facility use dose modulation, iterative reconstruction, and/or weight-based dosing when appropriate to reduce radiation dose to as low as reasonably achievable. Dictated by Ambrose Mac MD @ 08/27/2024 12:08:19 PM (Electronically Signed)
== END 2024-08-26 10:48 | disposition home or self-care (01) ==
LOC: CT 10:49
PROVIDERS: PCP Internal Medicine; Visit Provider Internal Medicine
DX: Z12.2 Encounter for screening for malignant neoplasm of respiratory organs (principal); R91.8 Other nonspecific abnormal finding of lung field; F17.200 Nicotine dependence, unspecified, uncomplicated
CPT/HCPCS: 71271